=== PATIENT | male | born 1940 | race Caucasian/White ===

== ENCOUNTER → 2017-10-02 | Outpatient (CLI) | payer MEDICARE ==
[2017-10-02 12:49] LABS: CH 31.4; CHCM 34.9; HCT 43.4 % (39.0-53.0); HDW 2.66; HGB 14.8 gm/dL (13.0-17.5); MCH 30.8 pg (25.0-35.0); MCHC 34.1 g/dL (31.0-37.0); MCV 90.4 fL (80.0-100.0); Mean Platelet Volume 6.4; RDW 12.5 % (11.5-15.5); WBC 6.8 k/uL (3.8-10.6)
[2017-10-02 12:58] LABS: Anion Gap 10 mmol/L; Blood Urea Nitrogen 24 mg/dL (9-20); Carbon Dioxide 25 mmol/L (22-30); Chloride 106 mmol/L (98-107); Non-African American GFR(MDRD) >60 (>60 ml/min/1.73 sqM); Potassium 4.6 mmol/L (3.5-5.1); Sodium 141 mmol/L (137-145)
== END | disposition home or self-care (01) ==
LOC: LABPAT 12:23
PROVIDERS: ATTEND Internal Medicine Cardiovascular Disease
DX: Z01.812 Encounter for preprocedural laboratory examination (principal); I25.10 Atherosclerotic heart disease of native coronary artery without angina pectoris
CPT/HCPCS: 36415; 80051; 82565; 84520; 85027

== ENCOUNTER 2017-10-10 06:10 | Day surgery (SDC) | payer MEDICARE ==
[~2017-10-10 06:10] MED LIST: ALPRAZolam 0.25 MG TAB PO PRN; ASPIRIN 325 MG TAB PO ONE; SODIUM CHLORIDE 0.9% 1,000 ML in EMPTY BAG 1 BAG IV ONE
[2017-10-10 06:46] LABS: Glucose,Whole Blood 132 mg/dL (75-99)
[2017-10-10] MEDS ORDERED: diphenhydrAMINE 50 MG/ML 1 ML VIAL ONE ×2 (07:07→07:08)
[2017-10-10] MEDS ORDERED: MIDAZOLAM 2 MG/2 ML VIAL ONE (07:07)
[2017-10-10] MEDS ORDERED: HEPARIN SODIUM 1,000 UN/ML (10ML VL) ONE (07:07)
[2017-10-10] MEDS ORDERED: VERAPAMIL 2.5 MG/ML 2 ML AMP ONE (07:09)
[2017-10-10] MEDS ORDERED: MIDAZOLAM 2 MG/2 ML VIAL IV ONE (07:25)
[2017-10-10] MEDS ORDERED: LIDOCAINE 2% INJ 20 MG/ML SQ ONE (07:28)
[2017-10-10] MEDS ORDERED: VERAPAMIL SYRINGE (5 MG/10 ML) INTRAARTER ONE ×2 (07:30→08:51)
[2017-10-10] MEDS ORDERED: NITROGLYCERIN 1000MCG/10ML SYRINGE INTRACORON ONE ×3 (07:47→08:40)
[2017-10-10 07:48] LABS: Basophils % (A) 1 %; Eosinophils # (A) 0.2 k/uL (0-0.7); Eosinophils % (A) 3 %; HCT 39.7 % (39.0-53.0); HGB 13.5 gm/dL (13.0-17.5); Lymphocytes # (A) 1.4 k/uL (1.0-4.8); Lymphocytes % (A) 20 %; MCH 30.7 pg (25.0-35.0); MCV 90.3 fL (80.0-100.0); Mean Platelet Volume 6.5; Monocytes # (A) 0.3 k/uL (0-1.0); Monocytes % (A) 5 %; Neutrophils # (A) 4.7 k/uL (1.3-7.7); Neutrophils % (A) 70 %; Platelet Count 326 k/uL (150-450); RDW 12.5 % (11.5-15.5); WBC 6.7 k/uL (3.8-10.6)
[2017-10-10] MEDS ORDERED: BIVALIRUDIN BOLUS 250 MG/50 ML IV ONE (07:52)
[2017-10-10] MEDS ORDERED: BIVALIRUDIN 250 MG in SODIUM CHLORIDE 0.9% 50 ML IV ONE ×2 (07:53→08:35)
[2017-10-10 08:02] LABS: Blood Urea Nitrogen 20 mg/dL (9-20)
[2017-10-10] MEDS ORDERED: CLOPIDOGREL 75 MG TAB ONE (08:36)
[2017-10-10] MEDS ORDERED: CLOPIDOGREL 75 MG TAB PO ONE (08:47)
[2017-10-10] MEDS ORDERED: IOHEXOL 350 MG/ML (PER ML) 100ML BTL INJ ONE (08:47)
[2017-10-10] MEDS ORDERED: NITROGLYCERIN SL TABS 0.4 MG TAB SUBLINGUAL PRN ×2 (08:55→09:01)
[2017-10-10] MEDS ORDERED: RX INFO: IV CONTRAST WAS GIVEN 1 EACH MISC MISCELLANE PRN (08:55)
[2017-10-10] MEDS ORDERED: MAG HYDROX/AL HYDROX/SIMETH 30 ML CUP PO PRN (08:55)
[2017-10-10] MEDS ORDERED: ATROPINE SULFATE 0.1 MG/ML 10ML SYRINGE IV PRN (08:55)
[2017-10-10] MEDS ORDERED: ZOLPIDEM 5 MG TAB PO PRN (08:55)
[2017-10-10] MEDS ORDERED: ATORVASTATIN 80 MG TAB PO SCH (09:00)
[2017-10-10] MEDS ORDERED: CLOPIDOGREL 75 MG TAB PO SCH (09:01)
[2017-10-10] MEDS ORDERED: INFLUENZA VACCINE (6 MOS+) 60 MCG/0.5 ML SYRINGE IM ONE (11:04)
[2017-10-10] MEDS ORDERED: PNEUMOCOCCAL VACC-PNEUMOVAX 23 25 MCG/0.5 ML VIAL IM ONE (11:04)
[2017-10-10] MEDS: SODIUM CHLORIDE 0.9% 1,000 ML IV SCH ×2 (11:05→23:45)
[2017-10-10] MEDS: LABETALOL 200 MG TAB PO SCH ×2 (11:06→22:36)
[2017-10-10] MEDS: amLODIPine 5 MG TAB PO SCH (11:06)
[2017-10-10] MEDS: ASPIRIN 81 MG PO SCH (11:06)
[2017-10-10] MEDS: B COMPLEX-VIT C-VIT E-ZINC 1 EACH TAB PO SCH (11:07)
[2017-10-10] MEDS: CHOLECALCIFEROL 1,000 UNIT TAB PO SCH (11:07)
[2017-10-10 11:34] LABS: Glucose,Whole Blood 111 mg/dL (75-99)
[2017-10-10] MEDS ORDERED: MULTIVITAMINS, THERA 1 EACH TAB PO SCH (12:00)
[2017-10-10] MEDS ORDERED: LISINOPRIL 20 MG TAB PO SCH (13:30)
[2017-10-10 16:33] LABS: Glucose,Whole Blood 149 mg/dL (75-99)
--- NOTE | 2017-10-10 17:26 | CC ---
CARDIAC CATHETERIZATION REPORT DATE OF SERVICE: 10/10/2017. PROCEDURE: 1. PTCA and stenting of complex calcified tortuous left anterior descending coronary artery with 3 drug-eluting stents. 2. PTCA and stenting of proximal circumflex marginal with a drug-eluting stent. PERFORMED BY: Dr. Citlaly Jaquez. Moderate conscious sedation time was 80 minutes provided with a combination of Versed and Dilaudid. CLINICAL INFORMATION: Mr. Maury Pink is a 77-year-old gentleman with a history of hypertension, hypercholesterolemia, type 2 diabetes mellitus on oral agents, and also CAD with a positive stress test. I performed stenting of subtotal circumflex last week and brought him for the procedure electively to check the patency of circumflex and perform a staged intervention of the LAD. LAD was a very calcified, tortuous, diffusely diseased vessel. After the first diagonal and first septal branch, there was a long area of disease of about 70-80% and then there was a diagonal branch and after which there was a 99% subtotal stenosis located at a very tortuous area. The patient was advised intervention of this complex lesion from the right radial approach. The patient's right groin had a moderate area of ecchymosis because of some issue with placing a Perclose device during his last procedure and therefore I recommended be performed from right radial approach. The patient was already on aspirin and Plavix. PROCEDURE NOTE: Under local anesthesia and strict aseptic precautions a 6-Wolof introducer was placed in the right radial artery. Using a Glidewire and a XB LAD 3.5 guide in guide catheter of 6-Wolof caliber I manipulated gently and positioned it in the left coronary at the ostium. Decent guide support was achieved. Using a Whisper wire, I advanced the wire and crossed the lesion in the proximal portion of the LAD after the diagonal branch and the wire was advanced into the major diagonal branch. I had some difficulty making the turn after the diagonal where there was extreme tortuosity. I then advanced another whisper short wire with more angulation on the tip. With this I was able to cross the mid LAD's 99% subtotal lesion and wire was kept distally. A 2.25 caliber 12 mm NC trek balloon was used to pre-dilate the lesion. The distal lesion was addressed with the same balloon and the proximal area was also dilated. I then advanced an 8 mm long 2.25 caliber Xience drug-eluting stent and deployed this at the tightest lesion in the distal aspect at of extreme tortuosity. The patient did not have any symptoms or new EKG changes. I then deployed 2 consecutive stents of 12 mm length and 2.25 caliber and these were deployed proximal to the previous stent jailing the diagonal branch which did not have any independent lesion. Excellent angiographic result was achieved with very good flow in the diagonal branch. I then noted that the circumflex at the site of stenting was patent, but at the proximal end of the stented segment, there was a 70% narrowing and therefore I addressed this with a slightly larger stent at this time. I used a 12 mm 3.0 caliber Xience stent and deployed it in the circumflex using the same whisper wire to cross the lesion. This was performed without predilatation. Excellent angiographic result in the circumflex and LAD was achieved. Patient received Angiomax bolus and infusion as per protocol. He also received additional 150 mg of Plavix, although he was already on aspirin and Plavix combination. The sheath was carefully taken out of the radial artery and a TR band applied as per protocol. Good hemostasis was secured. Saturation of the fingers of the right hand was 97%. Excellent angiographic result without complication was achieved. Results were discussed with the patient's and other family members and the patient himself. I expect he will be discharged tomorrow if he remains stable. SUMI / AJN: [id number] /
--- NOTE | 2017-10-10 17:29 | LTR ---
October 10, [address] Prado: Thank you for the opportunity to participate in the care of Mr. Maury Pink. Please find enclosed my detailed cardiac catheterization report and PTCA report for your records. I am pleased to report to you that both LAD and circumflex were stented with drug-eluting stents with excellent results. I expect Mr. Pink to be discharged tomorrow if he remains stable. Thank you for your referral. Please call for questions. With kindest regards, Sincerely, Citlaly Jaquez. MMSABINOL / IJN: [id number] /
[2017-10-10] MEDS ORDERED: ACETAMINOPHEN TAB 325 MG TAB PO PRN (18:34)
[2017-10-10 21:28] LABS: Glucose,Whole Blood 104 mg/dL (75-99)
[2017-10-10 22:58] VITALS: BMI 37.3
[2017-10-11 06:34] LABS: Basophils % (A) 1 %; Eosinophils # (A) 0.2 k/uL (0-0.7); Eosinophils % (A) 4 %; HCT 40.6 % (39.0-53.0); HGB 12.9 gm/dL (13.0-17.5); Lymphocytes # (A) 1.5 k/uL (1.0-4.8); Lymphocytes % (A) 24 %; MCH 29.8 pg (25.0-35.0); MCHC 31.7 g/dL (31.0-37.0); MCV 93.8 fL (80.0-100.0); Mean Platelet Volume 6.8; Monocytes # (A) 0.3 k/uL (0-1.0); Monocytes % (A) 5 %; Neutrophils % (A) 65 %; Platelet Count 269 k/uL (150-450); RBC 4.33 m/uL (4.30-5.90); WBC 6.1 k/uL (3.8-10.6)
[2017-10-11 06:43] LABS: Anion Gap 9 mmol/L; Blood Urea Nitrogen 15 mg/dL (9-20); Calcium 10.1 mg/dL (8.4-10.2); Carbon Dioxide 24 mmol/L (22-30); Chloride 107 mmol/L (98-107); Glucose 128 mg/dL (74-99); Potassium 4.1 mmol/L (3.5-5.1); Sodium 140 mmol/L (137-145)
[2017-10-11 06:44] LABS: Glucose,Whole Blood 126 mg/dL (75-99)
[2017-10-11] MEDS ORDERED: PRAVASTATIN SODIUM 80 MG TAB PO STA (07:24)
[2017-10-11] MEDS ORDERED: ASPIRIN 81 MG PO SCH (09:00)
[2017-10-11] MEDS ORDERED: CLOPIDOGREL 75 MG TAB PO SCH (09:00)
[2017-10-11] MEDS: ASPIRIN 81 MG PO SCH (09:10)
[2017-10-11] MEDS: LABETALOL 200 MG TAB PO SCH (09:10)
[2017-10-11] MEDS: CHOLECALCIFEROL 1,000 UNIT TAB PO SCH (09:10)
[2017-10-11] MEDS: amLODIPine 5 MG TAB PO SCH (09:10)
[2017-10-11] MEDS: B COMPLEX-VIT C-VIT E-ZINC 1 EACH TAB PO SCH (09:11)
--- NOTE | 2017-10-11 09:51 | DS ---
DISCHARGE SUMMARY DATE OF ADMISSION: 10/10/2017 DATE OF DISCHARGE: 10/11/2017 DIAGNOSES: 1. Unstable angina. 2. Hypertension. 3. Hypercholesterolemia. 4. Type 2 diabetes mellitus. PROCEDURES PERFORMED: PTCA and stenting of a long calcified lesion in LAD and PTCA and stenting of proximal obtuse marginal branch of circumflex. Please refer to the detailed PTCA report for the details of the procedures. Mr. Pink was brought in electively to perform a radial approach, PCI of LAD and to check patency of circumflex that was stented a week ago. LAD was stented uneventfully. Multiple long drug-eluting stents were used. Excellent angiographic result was achieved. I then noticed that the circumflex proximal to the stented segment had an area of haziness and a 70% stenosis and this was addressed with another larger 3.0 caliber 12 mm drug-eluting stent with excellent angiographic result. Postprocedure course was uneventful. This morning he is asymptomatic. Blood pressure is 126/66. The right radial site is clean and dry with a good pulse. Vital signs are stable. There is no JVD or carotid bruit. S1, S2 heard normally. Short systolic murmur noted. Lungs are clear. Abdomen and lower extremity exam unchanged. EKG revealed a sinus mechanism with an incomplete right bundle, unchanged from before. Laboratory data including the hemoglobin and renal function was normal. The patient has been ambulating without symptoms. He will be discharged today after he is up and about. He will see Dr. Matias Malave in the next 7 to 10 days. Discharge instructions regarding activity, diet and medications were given. MMODL / IJN: [id number] /
[2017-10-11 16:27] VITALS: BP 133/68; PULSE 73; TEMP 97.9
[2017-10-11 16:32] VITALS: RESP 16
== END 2017-10-11 10:54 | disposition home or self-care (01) ==
LOC: CATHCVL 06:10 → 6SEL 08:47 → CATHCVL 10-11 10:54
PROVIDERS: ATTEND Internal Medicine Interventional Cardiology
DX: I25.110 Atherosclerotic heart disease of native coronary artery with unstable angina pectoris (principal); I25.84 Coronary atherosclerosis due to calcified coronary lesion; Z23 Encounter for immunization; I45.10 Unspecified right bundle-branch block; Z95.5 Presence of coronary angioplasty implant and graft; R94.39 Abnormal result of other cardiovascular function study; I10 Essential (primary) hypertension; E78.00 Pure hypercholesterolemia, unspecified; E11.9 Type 2 diabetes mellitus without complications; Z82.49 Family history of ischemic heart disease and other diseases of the circulatory system; Z79.899 Other long term (current) drug therapy; Z87.891 Personal history of nicotine dependence
CPT/HCPCS: 80048; 82565; 84520; 85025 ×2; 90732; 90686; C9600 ×2; C1769 ×4; C1887; C1725; C1874; C1894; G0008; G0009; J2001; J2250; Q9967; J0583

== ENCOUNTER → 2019-12-03 | Outpatient (CLI) | payer MEDICARE ==
--- NOTE | 2019-12-03 23:14 | MR ---
EXAMINATION TYPE: MR hip LT wo con DATE OF EXAM: 12/03/2019 COMPARISON: None. HISTORY: Left hip pain Standard multiplanar, multisequence MRI departmental protocol Multiplanar, multisequence images of the pelvis focusing on the left hip were acquired. FINDINGS: Asymmetric severe superior joint space loss left hip with more mild to moderate joint space loss right hip. There is serpiginous low T1 signal through the superior femoral head which has lost spherical shape coronal image 8. Extensive subchondral cystic change along the superior aspect of the femoral head with diffuse T2 hyperintensity or edema extending into the femoral neck is noted. There is additional subchondral cystic change and edema through the superior aspect of the acetabulum. Sma ll to moderate sized hip joint effusions are present bilaterally. Right femoral head and hip shows no suspicious edema. No suspicious inguinal hernia or adenopathy bilaterally. Muscle bulk bilateral thi gh symmetric and is thought within normal limits. Bladder shows moderate areas of trabeculation and scattered small diverticula along the margin. Prost ate gland is overall heterogeneous appearance and enlarged in size. T2 hypointense areas suspicious f or nodule just left of midline in the apex axial image 10 series 601 is present. Correlate clinically . Consider urology referral. Incidental 2.7 x 0.9 cm well-defined lesion of T2 hyperintensity and T1 hypointensity right gluteal region along skin surface suspicious for sebaceous cyst axial image 10. D iverticulum visualized portion of the mid to distal sigmoid colon. No pelvic ascites or adenopathy no alejandra. IMPRESSION: 1. 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 No free nick ny fragmentation identified currently. 2. Enlarged prostate gland consistent with BPH. Outlet obstruction related to BPH thought present. Carvalho spicious area left peripheral apex medially noted. Correlate clinically. Consider a urology referral.
== END | disposition home or self-care (01) ==
LOC: RADMRIMAIN 13:00
PROVIDERS: ATTEND Family Medicine
DX: M16.12 Unilateral primary osteoarthritis, left hip (principal); M87.852 Other osteonecrosis, left femur; N40.0 Benign prostatic hyperplasia without lower urinary tract symptoms

== ENCOUNTER → 2020-04-14 | Outpatient (CLI) | payer MEDICARE ==
[2020-04-15 14:10] LABS: Albumin 3.71 g/dL (3.80-4.90); Gamma Globulin 0.62 g/dL (0.70-1.50)
== END | disposition home or self-care (01) ==
LOC: LABWHC1 08:53
PROVIDERS: ATTEND Psychiatry & Neurology Neurology
DX: G62.9 Polyneuropathy, unspecified (principal); R41.3 Other amnesia
CPT/HCPCS: 36415; 82607; 82747; 84165; 84439; 84443; 85652; 86038; 86618

== ENCOUNTER → 2020-06-02 | Outpatient (CLI) | payer MEDICARE ==
[2020-06-02 10:45] LABS: HCT 42.1 % (39.0-53.0); HGB 13.7 gm/dL (13.0-17.5); MCH 29.7 pg (25.0-35.0); MCHC 32.6 g/dL (31.0-37.0); MCV 91.1 fL (80.0-100.0); Mean Platelet Volume 6.8; Platelet Count 288 k/uL (150-450); RBC 4.63 m/uL (4.30-5.90); RDW 12.8 % (11.5-15.5); WBC 8.3 k/uL (3.8-10.6)
[2020-06-02 10:54] LABS: Albumin 4.2 g/dL (3.5-5.0); Calcium 10.8 mg/dL (8.4-10.2); Total Bilirubin 0.6 mg/dL (0.2-1.3); Total Protein 6.6 g/dL (6.3-8.2)
[2020-06-02 10:57] LABS: INR 1.1 (<1.2); Partial Thromboplastin Time 26.5 sec (22.0-30.0); Prothrombin Time 11.5 sec (9.0-12.0)
[2020-06-02 11:01] LABS: Appearance,Urine Clear (Clear); Bilirubin,Urine Negative (Negative); Blood,Urine Negative (Negative); Color,Urine Light Yellow; Glucose,Urine (UA) Negative (Negative); Ketones,Urine Negative (Negative); Leukocyte Esterase,Urine Negative (Negative); Nitrite,Urine Negative (Negative); PH, Urine 5.5 (5.0-8.0); Protein,Urine Negative (Negative); Specific Gravity,Urine 1.011 (1.001-1.035); Urobilinogen,Urine <2.0 mg/dL (<2.0)
== END | disposition home or self-care (01) ==
LOC: LABWHC1 09:48
PROVIDERS: ATTEND Orthopaedic Surgery
DX: Z01.812 Encounter for preprocedural laboratory examination (principal); Z79.01 Long term (current) use of anticoagulants
CPT/HCPCS: 36415; 80053; 81003; 85027; 85610; 85730; 87070

== ENCOUNTER 2020-06-22 07:54 | Day surgery (SDC) | payer MEDICARE ==
[2020-06-16 15:13] VITALS: BMI 32.5
[~2020-06-22 07:54] MED LIST changes: +ACETAMINOPHEN TAB 500 MG TAB PO ONE; -ALPRAZolam 0.25 MG TAB PO PRN; -ASPIRIN 325 MG TAB PO ONE; +DEXAMETHASONE SOD PHOSPHATE 10 MG/ML 1 ML VIAL IV ONE; +GABAPENTIN 300 MG CAP PO ONE; +HYDROmorphone 0.5 MG/0.5 ML SYRINGE IVP PRN; +MELOXICAM 7.5 MG TAB PO ONE; +MIDAZOLAM 2 MG/2 ML VIAL IV PRN; +ONDANSETRON 4 MG/2 ML VIAL IVP ONE; +ROPIVACAINE 246.25 MG, EPINEPHrine 0.5 MG, KETOROLAC 30 MG, cloNIDine HCL/PF 80 MCG, WA... MISCELLANE ONE; -SODIUM CHLORIDE 0.9% 1,000 ML in EMPTY BAG 1 BAG IV ONE; +TRANEXAMIC ACID 1,000 MG in SODIUM CHLORIDE 0.9% 100 ML IVPB ONE
[2020-06-22] MEDS: LACTATED RINGERS 1,000 ML IV SCH (08:26)
[2020-06-22 08:31] LABS: Glucose,Whole Blood 121 mg/dL (75-99)
[2020-06-22] MEDS ORDERED: fentaNYL (PF) 50 MCG/ML 2 ML AMP ONE (08:54)
[2020-06-22] MEDS ORDERED: SODIUM CHLORIDE 0.9% 100 ML BAG ONE (08:54)
[2020-06-22] MEDS ORDERED: GLYCOPYRROLATE 0.2 MG/ML 2 ML VIAL ONE (08:54)
[2020-06-22] MEDS ORDERED: PHENYLEPHRINE-0.9% NACL SYG 1 MG/10 ML SYRINGE ONE (08:54)
[2020-06-22] MEDS ORDERED: TRANEXAMIC ACID 1,000 MG/10 ML VIAL ONE (08:54)
[2020-06-22] MEDS ORDERED: SODIUM CHLORIDE 0.9% IRRIG 1,000 ML BTL IRRIGATION ONE (08:54)
[2020-06-22] MEDS ORDERED: MIDAZOLAM 2 MG/2 ML VIAL ONE (08:54)
[2020-06-22] MEDS ORDERED: ePHEDrine SULFATE/0.9% NACL/PF 50 MG/5 ML SYRINGE IV ONE (08:54)
[2020-06-22] MEDS ORDERED: HEPARIN SODIUM,PORCINE 10,000 UNIT/ML 1 ML VIAL ONE (08:54)
[2020-06-22] MEDS ORDERED: ceFAZolin 3,000 MG in SODIUM CHLORIDE 0.9% IRRIGATIO 3,000 ML IRRIGATION ONE (08:57)
[2020-06-22] MEDS ORDERED: HYDROcodone/APAP 5-325MG 1 EACH TAB PO PRN ×2 (09:04)
[2020-06-22] MEDS ORDERED: MAGNESIUM HYDROXIDE 2,400 MG/10 ML CUP PO PRN (09:04)
[2020-06-22] MEDS ORDERED: HYDROmorphone 0.5 MG/0.5 ML SYRINGE IVP PRN ×3 (09:04)
[2020-06-22] MEDS ORDERED: ONDANSETRON 4 MG/2 ML VIAL IVP PRN (09:04)
[2020-06-22] MEDS ORDERED: NALOXONE 0.4 MG/ML 1 ML VIAL IV PRN (09:04)
[2020-06-22] MEDS ORDERED: LACTATED RINGERS 1,000 ML IV ONE (09:47)
--- NOTE | 2020-06-22 10:25 | P.OP ---
Date of Procedure: 06/22/20 Preoperative Diagnosis: Severe osteoarthritis left hip Postoperative Diagnosis: Severe osteoarthritis left hip Procedure(s) Performed: Left total hip arthroplasty with a direct anterior approach Implants: Corbett and nephew Polarstem size 7 standard Corbett [employer] Nephew R3, 3 hole acetabular shell, 52 mm Corbett [employer] Nephew reflection 6.5 mm cancellus screw, 20 mm 2 [employer]ett [employer] Nephew R3, XLPE 20 acetabular liner Corbett [employer] Nephew Oxinium femoral head 36 m, +4 All components were press-fit. The articulation is Oxinium on polyethylene. Anesthesia: spinal Surgeon: Mayco Lee Structural Designer #1: Kalina Rincon Estimated Blood Loss (ml): 300 (130 mL returned with Cell Saver) Pathology: other (Femoral head) Condition: stable Disposition: PACU Indications for Procedure: After failure of conservative treatment we discussed the surgical and nonsurgical treatment options at length. Patient wishes to proceed with a total hip arthroplasty with a direct anterior approach. Complications specific to this procedure were discussed at length, including but not limited to infection, leg length discrepancy, dislocation, and nerve injury. Covid-19 was also discussed at length with the patient, and they are aware of the current policies and procedures. The patient was given the option of delaying surgery, but they elect to proceed knowing these risks. Patient is aware of all these complications and informed consent was obtained Operative Findings: The operative findings are consistent with severe osteoarthritis of the left hip Description of Procedure: Patient was seen and evaluated in the preoperative area, consent was reviewed, and the surgical site was marked with a skin marker. Patient was then brought to the operating room and given prophylactic antibiotics intravenously. 1 g of Tranexamic acid was also given. A spinal anesthetic was administered by the anesthesia department. The patient was then placed on the Fairdealing table with the bony prominences well-padded. The hip area was then prepped and draped in usual sterile fashion. A universal timeout was then performed, which confirmed the patient's name, surgical site, ALLERGIES, and procedure being performed. Next the incision site was located at 1 cm distal and 1 cm lateral to the anterior superior iliac spine. The skin and subcutaneous tissues were sharply incised. Incision was carefully dissected down to the fascia overlying the tensor fascia lissy muscle. This fascia was then incised in line with the incision. Next, using blunt finger dissection, the tensor fascia lissy muscle was dissected off its investing fascia. The muscle was then carefully retracted laterally with a cobra retractor over the lateral neck of the femur. Next, the circumflex vessels were identified and cauterized using the AquaMantis device. The anterior hip capsule was then exposed. The capsule was then opened and an inverted T fashion. Cobra retractors were then placed intracapsularly. The proximal femur was then visualized. The femoral neck was then osteotomized appropriate level above the lesser trochanter. Small amount of traction was placed with the Fairdealing table. A small wedge of bone was then removed from the remaining femoral head. Next, using a corkscrew femoral head was easily removed from the acetabulum. On gross visual inspection, the femoral head had complete loss of articular cartilage in multiple periarticular osteophytes. Attention was then turned to the acetabulum. the acetabulum was exposed and any remaining labrum was excised. Sequential reaming of the acetabulum was performed using fluoroscopic guidance. When the appropriate size was reached, a trial was then placed. The position and fit of the trial was checked with fluoroscopy. The trial was then removed. Then, using fluoroscopic guidance, the final implant was impacted at 20 of anteversion and 40 of abduction, and fully seated in the acetabulum. 2 screws were then placed in the acetabulum. Again fluoroscopy was used to check position of the screws. Next, the liner was then impacted, with a 20 elevated liner located in the anterior superior quadrant. Component locking was confirmed. Attention was then directed to the femur. With the aid of the Fairdealing table, the femur was externally rotated to approximately 130, extended, and abducted under the opposite leg. A side hook was then placed under the proximal femur, and the side hook elevator was used to elevate the proximal femur. Retractors were then placed. A capsular release was performed, as well as a release of the conjoined tendon, which afforded excellent visualization of the proximal femur. Next, a box osteotome was used to lateralize the proximal femur. A lath hand was then used to locate the femoral canal. Sequential broaching was then performed with appropriate size which afforded excellent fixation in the proximal femur. A trial was then placed with appropriate head and neck, and the hip was gently reduced with the aid of the Fairdealing table. Fluoroscopy was then used to check position of the components, as well as to ensure equal leg lengths. The hip was then gently dislocated and the trials were then removed. Final implants were then impacted and the hip was again reduced. Final fluoroscopic x-rays confirmed that the components were in anatomic position, as well as equal leg lengths. The hip was also taken through range of motion, and found to be stable. The hip was then copiously irrigated with antibiotic solution with pulsatile lavage. The hip was then irrigated with Irrisept solution. The soft tissues were then injected with a ropivacaine solution, which consisted of 246.25 mg of ropivacaine, 0.5 mg of epinephrine, 30 mg of Toradol, 80 g of clonidine, and 48.45 mL of sterile water, for a total of 100 mL of fluid injected. A second dose of 1 g of Tranexamic acid was also given. the fascia was then closed with 2-0 strata fix suture. The subcutaneous tissue was closed with 3-0 Vicryl. The subcuticular tissue was closed with 3-0 strata fix suture. The skin was then closed with Dermabond glue and a sterile silver dressing. The patient was then transferred to the recovery room in stable condition. The assistant teaching professor RAZIA Medina was required due to the complexity of surgery, and the need for skilled surgical specialist for positioning, draping, exposure, retraction, and closure of the wound.
[2020-06-22] MEDS ORDERED: ONDANSETRON 4 MG/2 ML VIAL IVP ONE (10:40)
--- NOTE | 2020-06-22 11:51 | FL ---
Fluoroscopy HISTORY: Anterior hip replacement 69 seconds fluoroscopy time supplied to the referring clinician. 2 intraoperative C-arm images docum ent the procedure. See dictated report from orthopedic surgery.
--- NOTE | 2020-06-22 12:01 | XR ---
EXAMINATION TYPE: XR Hip Limited LT DATE OF EXAM: 06/22/2020 CLINICAL HISTORY: Post hip surgery. Postop anterior left hip. TECHNIQUE: Frontal portable view of the left hip obtained. COMPARISON: Intraoperative fluoroscopy 06/22/2020 FINDINGS: Left hip total arthroplasty with normal anatomic alignment on frontal view. Subcutaneous e mphysema. No unexpected radiopaque foreign body. IMPRESSION: Good alignment of total left hip arthroplasty.
--- NOTE | 2020-06-22 12:45 | XR ---
Limited left hip HISTORY: Post anterior hip replacement 2 intraoperative images document the procedure.
[2020-06-22] MEDS: SODIUM CHLORIDE 0.9% 1,000 ML IV SCH ×2 (13:58→23:31)
[2020-06-22] MEDS ORDERED: NITROGLYCERIN SL TABS 0.4 MG TAB SUBLINGUAL PRN (17:05)
--- NOTE | 2020-06-22 18:09 | P.CONS ---
History of Present Illness - Reason for Consult Consult date: 06/22/20 HTN, CAD Requesting physician: Mayco Lee - Chief Complaint hip pain - History of Present Illness Patient is a 1-year-old male past medical history of coronary artery disease status post 5 coronary artery stent, diabetes mellitus, hypertension, and dyslipidemia who presented for elective left total hip arthroplasty. Patient underwent procedure without any immediate postoperative complications. He has been up and ambulating his room already. Patient seen and examined at bedside. He denies any chest pain, shortness of breath, lightheadedness, or dizziness. He had one episode of nausea postoperatively but it is much improved at this time. He states his pain is currently well controlled. He has no other complaints currently. Review of Systems Pertinent positives and negatives as discussed in HPI, a complete review of systems was performed and all other systems are negative. Past Medical History Past Medical History: Coronary Artery Disease (CAD), Chest Pain / Angina, Diabetes Mellitus, GERD/Reflux, Hyperlipidemia, Hypertension, Prostate Disorder, Sleep Apnea/CPAP/BIPAP Additional Past Medical History / Comment(s): hx varicose veins, constipation, enlarged prostate(thermal reduction), cyst rt kidney, growth in left kidney History of Any Multi-Drug Resistant Organisms: None Reported Past Surgical History: Heart Catheterization With Stent Additional Past Surgical History / Comment(s): bilat cataracts removed, varicose veins removal, mult surgeries to remove large birthmark from buttocks, 5 cardiac stents Past Anesthesia/Blood Transfusion Reactions: Previous Problems w/ Anesthesia, Motion Sickness, Postoperative Nausea & Vomiting (PONV) Additional Past Anesthesia/Blood Transfusion Reaction / Comm: passed out with a local anesthesia, hemorrhage from groin after heart cath Date of Last Stent Placement:: 10/2017 Past Psychological History: Depression Additional Psychological History / Comment(s): mom loss of memory Smoking Status: Never smoker Past Alcohol Use History: Rare Additional Past Alcohol Use History / Comment(s): QUIT SMOKING AT AGE 23, pipe until age 44 Past Drug Use History: None Reported - Past Family History Mother Family Medical History: Cancer Additional Family Medical History / Comment(s): breast Medications and Allergies Home Medications Medication Instructions Recorded Confirmed Type Aspirin [Adult Low Dose Aspirin EC] 81 mg PO DAILY 09/27/17 06/16/20 History lisinopriL [Zestril] 20 mg PO BID 09/27/17 06/22/20 History Clopidogrel Bisulfate [Plavix] 75 mg PO DAILY #30 tab 10/05/17 06/22/20 Rx metFORMIN HCL [Glucophage Xr] 500 mg PO DAILY #0 10/05/17 06/16/20 Rx Acetaminophen [Tylenol Extra 500 mg PO Q8HR 06/16/20 06/16/20 History Strength] Donepezil HCl [Aricept] 5 mg PO DAILY 06/16/20 06/16/20 History Labetalol HCl 200 mg PO 799,199906/16/20 06/22/20 History Multivitamins, Thera [Multivitamin 1 tab PO DAILY 06/16/20 06/16/20 History (formulary)] Nitroglycerin Sl Tabs [Nitrostat] 0.4 mg SUBLINGUAL Q5M PRN 06/16/20 06/16/20 History traMADol HCl [Ultram] 50 mg PO Q8HR 06/16/20 06/16/20 History Allergies Allergy/AdvReac Type Severity Reaction Status Date / Time amlodipine Allergy Unknown Verified 06/22/20 08:42 lidocaine [From Xylocaine] Allergy passed out Verified 06/22/20 08:42 Neiguui-Mes-Zgb Reductase Allergy Rash/Hives Verified 06/22/20 08:42 Inhibitor atorvastatin [From Lipitor] AdvReac Rash/Hives Verified 06/22/20 08:42 influenza virus vaccine, AdvReac Unknown Verified 06/22/20 08:42 specific pneumococcal vaccine AdvReac Unknown Verified 06/22/20 08:42 Physical Exam Osteopathic Statement: *. No significant issues noted on an osteopathic structural exam other than those noted in the History and Physical/Consult. Vitals: Vital Signs Temp Pulse Resp BP BP Pulse Ox 06/22/20 14:44 97.7 F 66 18 159/79 96 06/22/20 13:00 72 16 169/76 99 06/22/20 12:20 51 L 16 154/65 100 06/22/20 11:55 52 L 16 119/67 99 06/22/20 11:30 61 16 119/60 100 06/22/20 11:15 51 L 16 119/69 97 06/22/20 11:00 55 L 16 123/58 95 06/22/20 10:45 59 L 16 136/74 92 L 09/15/20 10:35 97.8 F 70 16 154/86 96 06/22/20 08:23 98.1 F 68 16 186/86 96 Intake and Output 06/22/20 06/22/20 06/22/20 06:59 14:59 22:59 Intake Total 1251 Output Total 300 Balance 951 Intake: IV 1251 Output: Estimated Blood Loss 300 Other: Weight 110.3 kg General: non toxic, no distress, appears at stated age Derm: warm, dry Head: atraumatic, normocephalic, symmetric Eyes: EOMI, no lid lag, anicteric sclera ENT: Nose and ears atraumatic, no thrush, no pharyngeal erythema Neck: No thyromegaly, no cervical lymphadenopathy, trachea midline, supple Mouth: no lip lesion, mucus membranes moist Cardiovascular: S1S2 reg, no murmur, positive posterior tibial pulse bilateral, no edema, capillary refill less than 2 seconds Lungs: clear to ascultation bilateral, no ronchi, no rales, no wheeze, no accessory muscle use Abdominal: soft, nontender to palpation, no guarding, no appreciable organomegaly, normal bowel sounds Ext: no gross muscle atrophy, muscle strength muscle strength 5 out of 5 in upper extremities, no contractures Neuro: CN II-XI grossly intact, light touch intact all 4 extremities Psych: Alert, oriented, appropriate affect Results Labs: Abnormal Lab Results - Last 24 Hours (Table) 06/22/20 Range/Units 08:25 POC Glucose (mg/dL) 121 H (75-99) mg/dL Assessment and Plan Assessment: Patient is an 80 yo here for elective left JACIEL. HTN, accelerated - resume labetalol, lisinopril, follow BP DM 2 - resume metformin - SSI - A1C 6.1 1 year ago CAD s/p stents - resume plavix when okay with ortho - ASA, allergic to statins Obesity - structured outpatient weight loss Chronic: GERD HLD NEYMAR- CPAP Thank you for allowing us to participate in the care of this pleasant patient. Do not hesitate to contact us with questions. Someone can be reached from the [facility] hospitalist group all hours of the day at [phone] or via perfect serve.
[2020-06-22] MEDS: ASPIRIN 325 MG TAB PO SCH (20:01)
[2020-06-22] MEDS: LABETALOL 200 MG TAB PO SCH (20:02)
[2020-06-22] MEDS: lisinopriL 20 MG TAB PO SCH (20:03)
[2020-06-22 20:51] LABS: Glucose,Whole Blood 224 mg/dL (75-99)
[2020-06-22] MEDS ORDERED: SENNOSIDES-DOCUSATE SODIUM 1 EACH TAB PO SCH (21:00)
[2020-06-23] MEDS ORDERED: traMADol 50 MG TAB PO SCH
[2020-06-23] MEDS: ACETAMINOPHEN TAB 500 MG TAB PO SCH ×2 (00:18→07:18)
[2020-06-23] MEDS: LACTATED RINGERS 1,000 ML IV SCH (04:13)
[2020-06-23 06:18] LABS: Basophils % (A) 0 %; Eosinophils % (A) 0 %; HCT 35.6 % (39.0-53.0); HGB 11.8 gm/dL (13.0-17.5); Lymphocytes # (A) 1.6 k/uL (1.0-4.8); Lymphocytes % (A) 15 %; MCH 29.6 pg (25.0-35.0); MCHC 33.3 g/dL (31.0-37.0); MCV 89.1 fL (80.0-100.0); Mean Platelet Volume 6.4; Monocytes # (A) 0.9 k/uL (0-1.0); Monocytes % (A) 8 %; Neutrophils # (A) 8.5 k/uL (1.3-7.7); Neutrophils % (A) 76 %; Platelet Count 274 k/uL (150-450); RBC 3.99 m/uL (4.30-5.90); RDW 12.5 % (11.5-15.5); WBC 11.2 k/uL (3.8-10.6)
[2020-06-23 06:54] LABS: Glucose,Whole Blood 136 mg/dL (75-99)
[2020-06-23] MEDS: LABETALOL 200 MG TAB PO SCH (07:19)
[2020-06-23] MEDS ORDERED: INSULIN ASPART (NovoLOG) 100 UNIT/ML VIAL SQ SCH (07:30)
[2020-06-23 07:50] VITALS: BP 173/84; PULSE 71; RESP 18; TEMP 97.9
--- NOTE | 2020-06-23 08:28 | P.DS ---
Providers Expected date of discharge: 06/23/20 Attending physician: Mayco Lee Consults: 06/22/20 09:04 Consult Physician Routine Consulting Provider: Amy Donahue Consult Reason/Comments: medical management and anticoagulation Do you want consulting provider notified?: Yes Primary care physician: Tamar Jacob - Discharge Diagnosis(es) (1) Osteoarthritis of left hip Current Visit: Yes Status: Acute (2) Status post total hip replacement, left Current Visit: Yes Status: Acute Hospital Course: This is a 80-year-old male with known history of degenerative arthritis of the left hip. The patient presents for evaluation. After discussion and con sideration patient elects to proceed with total hip arthroplasty. The patient is seen preoperatively by Dr. Lee and medically cleared for surgery by their primary care physician. Patient is admitted to [facility] on 06/22/2020 for total hip arthroplasty. The procedures performed without complication or sequelae. The patient is doing well postoperatively. Labs and vital signs are stable on day of discharge. On day of discharge patient's hip incision is healing well. There is minimal erythema. There is no drainage noted at this time. There is minimal soft tissue swelling to the hip and thigh. Patient has full foot and ankle motion without difficulty or pain. Calf is soft and nontender to palpation. Neurovascular status to the left lower extremity is intact. Patient is discharged home in good condition. Opioid start talking form is reviewed and signed at patient bedside. Please see med rec for accurate list of home medications. Plan - Discharge Summary Discharge Rx Participant: No New Discharge Prescriptions: New Aspirin 325 mg PO BID #60 tab HYDROcodone/APAP 5-325MG [[place] 5-325] 1 tab PO Q6HR PRN #30 tab PRN Reason: Pain Sennosides [Senokot] 2 tab PO DAILY PRN #60 tablet PRN Reason: Constipation No Action lisinopriL [Zestril] 20 mg PO BID Aspirin [Adult Low Dose Aspirin EC] 81 mg PO DAILY Clopidogrel Bisulfate [Plavix] 75 mg PO DAILY #30 tab metFORMIN HCL [Glucophage Xr] 500 mg PO DAILY #0 Acetaminophen [Tylenol Extra Strength] 500 mg PO Q8HR Donepezil HCl [Aricept] 5 mg PO DAILY traMADol HCl [Ultram] 50 mg PO Q8HR Labetalol HCl 200 mg PO 0800,1999 Multivitamins, Thera [Multivitamin (formulary)] 1 tab PO DAILY Nitroglycerin Sl Tabs [Nitrostat] 0.4 mg SUBLINGUAL Q5M PRN PRN Reason: Chest Pain Discharge Medication List Aspirin [Adult Low Dose Aspirin EC] 81 mg PO DAILY 09/27/17 [History] lisinopriL [Zestril] 20 mg PO BID 09/27/17 [History] Clopidogrel Bisulfate [Plavix] 75 mg PO DAILY #30 tab 10/05/17 [Rx] metFORMIN HCL [Glucophage Xr] 500 mg PO DAILY #0 10/05/17 [Rx] Acetaminophen [Tylenol Extra Strength] 500 mg PO Q8HR 06/16/20 [History] Donepezil HCl [Aricept] 5 mg PO DAILY 06/16/20 [History] Labetalol HCl 200 mg PO 799,199906/16/20 [History] Multivitamins, Thera [Multivitamin (formulary)] 1 tab PO DAILY 06/16/20 [History] Nitroglycerin Sl Tabs [Nitrostat] 0.4 mg SUBLINGUAL Q5M PRN 06/16/20 [History] traMADol HCl [Ultram] 50 mg PO Q8HR 06/16/20 [History] Aspirin 325 mg PO BID #60 tab 06/23/20 [Rx] HYDROcodone/APAP 5-325MG [[place] 5-325] 1 tab PO Q6HR PRN #30 tab 06/23/20 [Rx] Sennosides [Senokot] 2 tab PO DAILY PRN #60 tablet 06/23/20 [Rx] Follow up Appointment(s)/Referral(s): Mayco Lee DO [Doctor of Osteopathic Medicine] - 2 Weeks Activity/Diet/Wound Care/Special Instructions: Weightbearing as tolerated with walker. Leave dressing intact. Dressing may be removed by home care nurse or by patient in 10 days. May shower with dressing on. Please take aspirin 325mg twice daily for 30 days to prevent blood clots. Recommend use of compression stockings daily until follow up to help prevent swelling and blood clots. May remove at night before sleeping. Please follow-up with [facility] in 2 weeks and call with any questions or concerns, . Discharge Disposition: HOME WITH HOME HEALTH SERVICES
[2020-06-23] MEDS ORDERED: DONEPEZIL 5 MG TAB PO SCH (09:00)
[2020-06-23] MEDS ORDERED: NON FORMULARY DRUG (Aspirin [Adult Low Dose Aspirin Ec] 81 MG Tablet.Dr) PO SCH (09:00)
[2020-06-23] MEDS ORDERED: metFORMIN 500 MG TAB PO SCH (09:00)
[2020-06-23] MEDS ORDERED: MELOXICAM 7.5 MG TAB PO SCH (09:00)
[2020-06-23] MEDS ORDERED: MULTIVITAMINS, THERA 1 EACH TAB PO SCH (09:00)
[2020-06-23] MEDS: lisinopriL 20 MG TAB PO SCH (09:19)
[2020-06-23] MEDS: ASPIRIN 325 MG TAB PO SCH (09:19)
--- NOTE | 2020-06-23 10:13 | P.PN ---
Subjective Progress Note Date: 06/23/20 Principal diagnosis: hip pain Patient is an 80-year-old male past medical history of coronary artery disease status post 5 coronary artery stent, diabetes mellitus, hypertension, and dyslipidemia who presented for elective left total hip arthroplasty. Patient underwent procedure without any immediate postoperative complications. He has been up and ambulating his room already and has worked with physical therapy. Patient seen and examined at bedside. He denies any chest pain, shortness of breath, nausea or vomiting at this time. Had one episode of nausea last evening. Pain is well-controlled states he did well with physical therapy. Excited to go home. General: non toxic, no distress, appears at stated age Derm: warm, dry Head: atraumatic, normocephalic, symmetric Eyes: EOMI, no lid lag, anicteric sclera Mouth: no lip lesion, mucus membranes moist Cardiovascular: S1S2 reg, no murmur, positive posterior tibial pulse bilateral, Lungs: Decreased bs bilateral, no rhonchi, no rales , no accessory muscle use Abdominal: soft, nontender to palpation, no guarding, no appreciable organomegaly Ext: no gross muscle atrophy, no edema, no contractures Neuro: CN II-XI grossly intact, no focal neuro deficits Psych: Alert, oriented, appropriate affect Objective - Vital Signs Vital signs: Vital Signs Temp 97.9 F 06/23/20 07:15 Pulse 71 06/23/20 07:15 Resp 18 06/23/20 07:15 BP 173/84 06/23/20 07:15 Pulse Ox 97 06/23/20 07:15 Intake & Output 06/22/20 06/23/20 06/23/20 18:59 06:59 18:59 Intake Total 1251 236 Output Total 300 Balance 951 236 Weight 110.3 kg Intake: IV 1251 Oral 236 Output: Estimated Blood Loss 300 Other: Voiding Method Toilet Toilet # Voids 1 2 2 - Labs CBC & Chem 7: 06/23/20 05:48 Labs: Abnormal Lab Results - Last 24 Hours (Table) 06/22/20 06/23/20 06/23/20 Range/Units 20:49 05:48 06:52 WBC 11.2 H (3.8-10.6) k/uL RBC 3.99 L (4.30-5.90) m/uL Hgb 11.8 L (13.0-17.5) gm/dL Hct 35.6 L (39.0-53.0) % Neutrophils # 8.5 H (1.3-7.7) k/uL POC Glucose (mg/dL) 224 H 136 H (75-99) mg/dL Assessment and Plan Assessment: Patient is an 80 yo here for elective left JACIEL. HTN - labetalol, lisinopril, follow BP DM 2 - metformin - A1C 6.1 1 year ago CAD s/p stents - resume plavix, ASA BID as DVT prophylaxis for 30 days per orhto and then resume ASA 81 mg daily on 07/24. Due to need for high dose ASA and hx of GERD will add protonix X 30 days as GI prophylaxis and can stop on 07/24 (orders added to D/C) - allergic to statins Obesity - structured outpatient weight loss GERD - PPI for 20 days while on BID ASA Chronic: HLD NEYMAR- CPAP Thank you for allowing us to participate in the care of this pleasant patient. Do not hesitate to contact us with questions. Someone can be reached from the [facility] hospitalist group all hours of the day at [phone] or via [employer].
[2020-06-23 17:26] LABS: Hemoglobin A1C 5.7 % (4.0-6.0)
--- NOTE | 2020-06-25 07:51 | CDI ---
Outpatient Documentation Clarification Form Date: 06/25/20 CDS/Manager Combination Name: Miriam Smith Phone: If any questions, call Zenaida Sheehan Web Content Editor at [phone] Patient Name: Maury Pink Admit Date: 06/22/20 Discharge Date: 06/23/20 ATTENTION: The [facility] Coding Staff appreciate your assistance in clarifying documentation. Please respond to the clarification below the line at the bottom and electronically sign. The [facility] Coding staff will review the response and follow-up if needed. Please note: Queries are made part of the Legal Health Record. If you have any questions, please contact the Web Content Editor. Dear Dr. Lee, Please provide clarification as to the laterality of the procedure performed. Procedure note, H&P, and Consult all state left hip. The order for pathology and pathology report state right hip. Please clarify. Thank you for your kind consideration. It is the left hip MTDD
== END 2020-06-23 11:47 | disposition home health service (06) ==
LOC: OR 07:54 → EDSTATUS 11:30 → 4SSUR 13:14 → OR 06-23 11:47
PROVIDERS: ATTEND Orthopaedic Surgery
DX: M16.12 Unilateral primary osteoarthritis, left hip (principal); E11.9 Type 2 diabetes mellitus without complications; I25.10 Atherosclerotic heart disease of native coronary artery without angina pectoris; I11.9 Hypertensive heart disease without heart failure; H91.90 Unspecified hearing loss, unspecified ear; E78.5 Hyperlipidemia, unspecified; E66.9 Obesity, unspecified; Z68.33 Body mass index [BMI] 33.0-33.9, adult; R26.81 Unsteadiness on feet; Z97.3 Presence of spectacles and contact lenses; R41.3 Other amnesia; R05 Cough; Z95.5 Presence of coronary angioplasty implant and graft; Z98.890 Other specified postprocedural states; M54.5 Low back pain; Z95.0 Presence of cardiac pacemaker; Z86.718 Personal history of other venous thrombosis and embolism; Z79.02 Long term (current) use of antithrombotics/antiplatelets; K21.9 Gastro-esophageal reflux disease without esophagitis; G47.33 Obstructive sleep apnea (adult) (pediatric); Z99.89 Dependence on other enabling machines and devices; Z98.42 Cataract extraction status, left eye; Z98.41 Cataract extraction status, right eye; F32.9 Major depressive disorder, single episode, unspecified; Z87.891 Personal history of nicotine dependence; Z80.3 Family history of malignant neoplasm of breast; Z79.84 Long term (current) use of oral hypoglycemic drugs; Z79.1 Long term (current) use of non-steroidal anti-inflammatories (NSAID); Z79.82 Long term (current) use of aspirin; Z79.891 Long term (current) use of opiate analgesic; Z79.899 Other long term (current) drug therapy; Z88.8 Allergy status to other drugs, medicaments and biological substances; Z88.4 Allergy status to anesthetic agent; Z88.7 Allergy status to serum and vaccine
CPT/HCPCS: 97110; 97161; 86891; 86900; 86901; 85025; 86850; 88300; 83036; 73501; 27130; P9022; C1776; J2250; J0171; J1644; J1100; J0690 ×3; J2405; J3010; J1885; J2795; J2370; J0735

== ENCOUNTER → 2020-07-07 | Outpatient (CLI) | payer MEDICARE ==
--- NOTE | 2020-07-07 18:35 | CT ---
EXAMINATION TYPE: CT angio chest DATE OF EXAM: 07/07/2020 COMPARISON: None HISTORY: abnormal coagulation profice-stat hold and call CT DLP: 489.10 mGycm Automated exposure control for dose reduction was used. CONTRAST: Performed with IV Contrast, patient injected with 100 mL of Isovue 370. There are 3-D post processed images. The lungs are clear of consolidation. There is minimal subpleural interstitial density in the posteri or lung shane. Heart size is fairly normal. There is no pericardial effusion. There is no pleural ef fusion. Thoracic aorta is intact. There is no aneurysm or dissection. There is no mediastinal adenopathy. The re are no hilar masses. There is normal contrast opacification of the pulmonary arteries. There are no filling defects. There is spurring in the thoracic spine. Sternum is intact. The ribs appear intact. There is moderate arthritic change in the shoulder joints that is worse on the left side. IMPRESSION: No evidence of pulmonary embolism. Minimal pulmonary fibrotic changes. Normal heart.
== END | disposition home or self-care (01) ==
LOC: RADCTMAIN 17:34
PROVIDERS: ATTEND Family Medicine
DX: J84.10 Pulmonary fibrosis, unspecified (principal); R79.1 Abnormal coagulation profile
CPT/HCPCS: 71275; Q9967

== ENCOUNTER → 2021-03-31 | Outpatient (CLI) | payer MEDICARE ==
--- NOTE | 2021-03-31 15:42 | US ---
EXAMINATION TYPE: US carotid duplex BILAT DATE OF EXAM: 03/31/2021 COMPARISON: US 2015 CLINICAL HISTORY: R06.89 Other abnormalities of breathing. EXAM MEASUREMENTS: RIGHT: Peak Systolic Velocity (PSV) cm/sec ----- Right CCA: 72.7 ----- Right ICA: 80.0 ----- Right ECA: 88.8 ICA/CCA ratio: 1.1 RIGHT: End Diastole cm/sec ----- Right CCA: 15.2 ----- Right ICA: 25.2 ----- Right ECA: 11.4 LEFT: Peak Systolic Velocity (PSV) cm/sec ----- Left CCA: 78.1 ----- Left ICA: 74.8 ----- Left ECA: 88.8 ICA/CCA ratio: 1.0 LEFT: End Diastole cm/sec ----- Left CCA: 15.7 ----- Left ICA: 21.1 ----- Left ECA: 10.3 VERTEBRALS (direction of flow): Right Vertebral: Antegrade Left Vertebral: Antegrade Rhythm: Normal No significant stenosis IMPRESSION: No sonographic evidence for hemodynamically significant stenosis of the bilateral carotid arteries. Criteria for Assigning % of Stenosis / Diameter reduction (Estimation based on the indirect measurements of the internal carotid artery velocities (ICA PSV). 1. Normal (no stenosis)=ICA PSV < 125 cm/s: ratio < 2.0: ICA EDV<40 cm/s. 2. Less than 50% stenosis=ICA PSV < 125 cm/s: ratio < 2.0: ICA EDV<40 cm/s. 3. 50 to 69% stenosis=ICA PSV of 125 to 230 cm/s: ration 2.0 ? 4.0: ICA EDV 40-100 cm/s. 4. Greater than 70% stenosis to near occlusion= ICA PSV > 230 cm/s: ratio > 4.0: ICA EDV > 100 cm/s. 5. Near occlusion= ICA PSV velocities may be low or undetectable: variable ratio and ICA EDV. 6. Total occlusion=unable to detect flow.
== END | disposition home or self-care (01) ==
LOC: RADUSWWP 15:01
PROVIDERS: ATTEND Family Medicine
DX: R06.89 Other abnormalities of breathing (principal)
CPT/HCPCS: 93880

== ENCOUNTER 2021-05-17 16:48 | Observation (INO) | payer MEDICARE ==
[2021-05-17] MEDS ORDERED: SODIUM CHLORIDE 0.9% 500 ML 500 ML IV STA (17:17)
[2021-05-17] MEDS ORDERED: MECLIZINE 12.5 MG TAB PO STA (17:17)
--- NOTE | 2021-05-17 17:49 | ED ---
Dizziness HPI - General Chief Complaint: Dizziness Stated Complaint: dizziness, vomiting Source: EMS Mode of arrival: EMS Limitations: physical limitation - History of Present Illness Initial Comments: 81-year-old male with past medical history of coronary artery disease, diabetes who presents to the emergency department with dizziness. Reports that he woke up at 2:00 and everything was spinning. He saw the alarm clock on the side of his bed flickering. He began having nausea with dry vomiting. No history of similar in the past. Denies taking any medications for his symptoms. No recent head trauma. No recent chiropractic manipulations of the neck. Admits to generalized weakness however denies any lateralizing weakness. No fevers, chills or neck pain. No chest pain or shortness of breath. Patient takes Plavix. No other alleviating, precipitating or modifying factors - Related Data Home Medications Medication Instructions Recorded Confirmed lisinopriL [Zestril] 20 mg PO BID 09/27/17 05/17/21 Labetalol HCl 200 mg PO BID 06/16/20 05/17/21 Nitroglycerin Sl Tabs [Nitrostat] 0.4 mg SUBLINGUAL Q5M PRN 06/16/20 05/17/21 Aspirin EC [Ecotrin Low Dose] 81 mg PO DAILY 05/17/21 05/17/21 Cholecalciferol (Vitamin D3) 125 mcg PO DAILY 05/17/21 05/17/21 [Vitamin D3 (125 MCG = 5,000 IU)] Ginkgo Biloba 220 Mg 440 mg PO DAILY 05/17/21 05/17/21 Herbal Allergy Med 1 tab PO DAILY 05/17/21 05/17/21 Horny Goat Caneadea Supplement 1 cap PO DAILY 05/17/21 05/17/21 Multivitamins, Thera [Multivitamin 1 tab PO DAILY 05/17/21 05/17/21 (formulary)] Rivastigmine [Rivastigmine 1 patch TRANSDERM DAILY 05/17/21 05/17/21 9.5MG/24Hr] Testosterol 1 cap PO DAILY 05/17/21 05/17/21 metFORMIN HCL 500 mg PO DAILY 05/17/21 05/17/21 Previous Rx's Medication Instructions Recorded Clopidogrel Bisulfate [Plavix] 75 mg PO DAILY #30 tab 10/05/17 Allergies Allergy/AdvReac Type Severity Reaction Status Date / Time amlodipine Allergy Unknown Verified 05/17/21 18:11 lidocaine [From Xylocaine] Allergy passed out Verified 05/17/21 18:11 Dpasaqa-Gmv-Gxd Reductase Allergy Rash/Hives Verified 05/17/21 18:11 Inhibitor atorvastatin [From Lipitor] AdvReac Rash/Hives Verified 05/17/21 18:11 influenza virus vaccine, AdvReac Unknown Verified 05/17/21 18:11 specific pneumococcal vaccine AdvReac Unknown Verified 05/17/21 18:11 Review of Systems ROS Statement: Those systems with pertinent positive or pertinent negative responses have been documented in the HPI. ROS Other: All systems not noted in ROS Statement are negative. Past Medical History Past Medical History: Coronary Artery Disease (CAD), Chest Pain / Angina, Diabetes Mellitus, Hyperlipidemia, Hypertension, Memory Impairment, Prostate Disorder Additional Past Medical History / Comment(s): arrthymia, enlarged prostate History of Any Multi-Drug Resistant Organisms: None Reported Past Surgical History: Heart Catheterization With Stent Additional Past Surgical History / Comment(s): bilat cataracts removed, left hip, Past Anesthesia/Blood Transfusion Reactions: Previous Problems w/ Anesthesia, Motion Sickness, Postoperative Nausea & Vomiting (PONV) Additional Past Anesthesia/Blood Transfusion Reaction / Comment(s): passed out with a local anesthesia, hemorrhage from groin after heart cath Date of Last Stent Placement:: 10/05/17 Past Psychological History: No Psychological Hx Reported Smoking Status: Former smoker Past Alcohol Use History: None Reported Past Drug Use History: None Reported - Past Family History Mother Family Medical History: Cancer Additional Family Medical History / Comment(s): breast General Exam Limitations: physical limitation General appearance: alert, in no apparent distress Head exam: Present: atraumatic, normocephalic, normal inspection Eye exam: Present: normal appearance, PERRL, EOMI, nystagmus (Horizontal). Absent: scleral icterus, conjunctival injection, periorbital swelling ENT exam: Present: normal exam, mucous membranes moist Neck exam: Present: normal inspection. Absent: tenderness, meningismus, lymphadenopathy Respiratory exam: Present: normal lung sounds bilaterally. Absent: respiratory distress, wheezes, rales, rhonchi, stridor Cardiovascular Exam: Present: regular rate, normal rhythm, normal heart sounds. Absent: systolic murmur, diastolic murmur, rubs, gallop, clicks GI/Abdominal exam: Present: soft, normal bowel sounds. Absent: distended, tenderness, guarding, rebound, rigid Extremities exam: Present: normal inspection, full ROM, normal capillary refill. Absent: tenderness, pedal edema, joint swelling, calf tenderness Back exam: Present: normal inspection Neurological exam: Present: alert, oriented X3, CN II-XII intact Psychiatric exam: Present: normal affect, normal mood Skin exam: Present: warm, dry, intact, normal color. Absent: rash Course Vital Signs 05/17/21 05/17/21 05/17/21 17:04 17:35 19:37 Temperature 98.9 F Pulse Rate 78 56 L 56 L Respiratory 20 18 18 Rate Blood Pressure 189/85 168/72 167/81 O2 Sat by Pulse 96 96 95 Oximetry 05/17/21 05/17/21 20:22 21:38 Temperature 98.7 F Pulse Rate 59 L 57 L Respiratory 18 18 Rate Blood Pressure 157/82 167/96 O2 Sat by Pulse 97 97 Oximetry EKG Findings - EKG Comments: EKG Findings:: EKG demonstrates has pericardial the first-degree block. Rate of 59. MN interval 218. QRS 150. QTC of 471. No acute ST segment elevations or depressions concerning for ischemic changes Medical Decision Making - Medical Decision Making Upon arrival patient was placed in room 28. With her history and physical exam is performed. IV is established and laboratory studies were conducted. He is given 25 mg of meclizine. Laboratory studies are reviewed without acute abnormalities. Patient is reevaluated and continues to have dizziness. He is given a dose of Valium. Sent for CT of his brain as well as CT angiography. CT angiography demonstrates no acute abnormality of head or neck. Moderate stenosis of proximal right ICA. Patient is reevaluated once again in continues to have nystagmus and vertigo. Recommended admission for persistent symptoms which the patient did agree to. Spoke with Dr. Kirkland who agreed to admit the patient. I will consult Dr. Gregorio - Lab Data Result diagrams: 05/17/21 17:38 05/17/21 17:38 Lab Results 05/17/21 05/17/21 05/17/21 Range/Units 17:38 17:38 17:38 WBC 9.6 (3.8-10.6) k/uL RBC 4.74 (4.30-5.90) m/uL Hgb 15.3 (13.0-17.5) gm/dL Hct 43.8 (39.0-53.0) % MCV 92.4 (80.0-100.0) fL MCH 32.2 (25.0-35.0) pg MCHC 34.9 (31.0-37.0) g/dL RDW 12.5 (11.5-15.5) % Plt Count 310 (150-450) k/uL MPV 7.0 Neutrophils % 86 % Lymphocytes % 10 % Monocytes % 3 % Eosinophils % 0 % Basophils % 0 % Neutrophils # 8.2 H (1.3-7.7) k/uL Lymphocytes # 0.9 L (1.0-4.8) k/uL Monocytes # 0.3 (0-1.0) k/uL Eosinophils # 0.0 (0-0.7) k/uL Basophils # 0.0 (0-0.2) k/uL PT 11.4 (9.0-12.0) sec INR 1.1 (<1.2) APTT 21.7 L (22.0-30.0) sec Sodium 137 (137-145) mmol/L Potassium 4.7 (3.5-5.1) mmol/L Chloride 108 H (98-107) mmol/L Carbon Dioxide 20 L (22-30) mmol/L Anion Gap 9 mmol/L BUN 19 (9-20) mg/dL Creatinine 0.91 (0.66-1.25) mg/dL Est GFR (CKD-EPI)AfAm >90 (>60 ml/min/1.73 sqM) Est GFR (CKD-EPI)NonAf 78 (>60 ml/min/1.73 sqM) Glucose 153 H (74-99) mg/dL Calcium 10.2 (8.4-10.2) mg/dL Total Bilirubin 0.6 (0.2-1.3) mg/dL AST 31 (17-59) U/L ALT 19 (4-49) U/L Alkaline Phosphatase 88 (38-126) U/L Troponin I (0.000-0.034) ng/mL Total Protein 6.7 (6.3-8.2) g/dL Albumin 4.3 (3.5-5.0) g/dL 08/10/21 Range/Units 17:38 WBC (3.8-10.6) k/uL RBC (4.30-5.90) m/uL Hgb (13.0-17.5) gm/dL Hct (39.0-53.0) % MCV (80.0-100.0) fL MCH (25.0-35.0) pg MCHC (31.0-37.0) g/dL RDW (11.5-15.5) % Plt Count (150-450) k/uL MPV Neutrophils % % Lymphocytes % % Monocytes % % Eosinophils % % Basophils % % Neutrophils # (1.3-7.7) k/uL Lymphocytes # (1.0-4.8) k/uL Monocytes # (0-1.0) k/uL Eosinophils # (0-0.7) k/uL Basophils # (0-0.2) k/uL PT (9.0-12.0) sec INR (<1.2) APTT (22.0-30.0) sec Sodium (137-145) mmol/L Potassium (3.5-5.1) mmol/L Chloride (98-107) mmol/L Carbon Dioxide (22-30) mmol/L Anion Gap mmol/L BUN (9-20) mg/dL Creatinine (0.66-1.25) mg/dL Est GFR (CKD-EPI)AfAm (>60 ml/min/1.73 sqM) Est GFR (CKD-EPI)NonAf (>60 ml/min/1.73 sqM) Glucose (74-99) mg/dL Calcium (8.4-10.2) mg/dL Total Bilirubin (0.2-1.3) mg/dL AST (17-59) U/L ALT (4-49) U/L Alkaline Phosphatase (38-126) U/L Troponin I <0.012 (0.000-0.034) ng/mL Total Protein (6.3-8.2) g/dL Albumin (3.5-5.0) g/dL Disposition Clinical Impression: Vertigo Disposition: ADMITTED IP TO THIS [facility] Condition: Stable Is patient prescribed a controlled substance at d/c from ED?: No Decision to Admit Reason: Admit from EC Decision Date: 05/17/21 Decision Time: 21:11
[2021-05-17 17:53] LABS: Basophils % (A) 0 %; Eosinophils % (A) 0 %; HCT 43.8 % (39.0-53.0); HGB 15.3 gm/dL (13.0-17.5); Lymphocytes # (A) 0.9 k/uL (1.0-4.8); Lymphocytes % (A) 10 %; MCH 32.2 pg (25.0-35.0); MCHC 34.9 g/dL (31.0-37.0); MCV 92.4 fL (80.0-100.0); Monocytes # (A) 0.3 k/uL (0-1.0); Monocytes % (A) 3 %; Neutrophils # (A) 8.2 k/uL (1.3-7.7); Neutrophils % (A) 86 %; Platelet Count 310 k/uL (150-450); RBC 4.74 m/uL (4.30-5.90); RDW 12.5 % (11.5-15.5); WBC 9.6 k/uL (3.8-10.6)
[2021-05-17 18:04] LABS: ALT 19 U/L (4-49); AST 31 U/L (17-59); African American GFR (CKD) >90 (>60 ml/min/1.73 sqM); Albumin 4.3 g/dL (3.5-5.0); Alkaline Phosphatase 88 U/L (38-126); Anion Gap 9 mmol/L; Blood Urea Nitrogen 19 mg/dL (9-20); Calcium 10.2 mg/dL (8.4-10.2); Carbon Dioxide 20 mmol/L (22-30); Chloride 108 mmol/L (98-107); Glucose 153 mg/dL (74-99); Non-African American GFR(CKD) 78 (>60 ml/min/1.73 sqM); Potassium 4.7 mmol/L (3.5-5.1); Sodium 137 mmol/L (137-145); Total Bilirubin 0.6 mg/dL (0.2-1.3); Total Protein 6.7 g/dL (6.3-8.2)
[2021-05-17 18:07] LABS: INR 1.1 (<1.2); Partial Thromboplastin Time 21.7 sec (22.0-30.0); Prothrombin Time 11.4 sec (9.0-12.0)
--- NOTE | 2021-05-17 19:18 | CT ---
EXAM: CT brain wo con CLINICAL HISTORY: Altered mental status and dizziness. COMPARISON: None TECHNIQUE: Contiguous axial noncontrast images of the brain were obtained. Coronal and sagittal refor mats were generated and reviewed. Automated dose control was used for this exam. FINDINGS: There is no evidence for intracranial hemorrhage, mass effect or midline shift. 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 There is moderate parenchymal volume loss and mild white matter disease. Ventricular size and configuration is within normal limits for degree of parenchymal volume. The paranasal sinuses are clear. The mastoid air cells are clear. No evidence for calvarial fracture. IMPRESSION: No acute intracranial abnormality.
--- NOTE | 2021-05-17 19:41 | CT ---
EXAMINATION TYPE: CT angio head neck DATE OF EXAM: 05/17/2021 HISTORY: ams, dizziness COMPARISON: None available. CT DLP: 947.8 mGycm. Automated Exposure Control for Dose Reduction was Utilized. TECHNIQUE: CTA scan of the head/neck is performed with IV Contrast, patient injected with 65cc mL of Isovue 370, axial images are obtained, coronal and sagittal reformatted images are reviewed. Three-D reconstructed images are created on an independent workstation and reviewed. FINDINGS: There is normal three-vessel branching of the aorta. There is atherosclerotic plaque at the right com mon carotid bulb with approximately 50% stenosis of the right proximal ICA. There is no additional hi gh-grade stenosis, dissection or aneurysm seen in the bilateral common carotid, cervical internal car otid and vertebral arteries. There is no evidence of high-grade stenosis, dissection or aneurysm in the intracranial internal vazquez tid arteries, anterior, middle and posterior cerebral arteries as well as in the imaged vertebral and basilar arteries. The communicating arteries are unremarkable. IMPRESSION: No acute abnormality of the CTA head/neck. Moderate stenosis of the right proximal ICA. NASCET criteria was used in interpretation of this exam?
[2021-05-17] MEDS ORDERED: DIAZEPAM 5 MG/ML 2 ML INJ IVP STA (20:15)
[2021-05-17] MEDS ORDERED: ONDANSETRON 4 MG/2 ML VIAL IVP PRN (21:11)
[2021-05-17] MEDS ORDERED: NALOXONE 0.4 MG/ML 1 ML VIAL IV PRN (21:11)
[2021-05-17] MEDS ORDERED: NITROGLYCERIN SL TABS 0.4 MG TAB SUBLINGUAL PRN (22:17)
[2021-05-17] MEDS ORDERED: ASPIRIN 81 MG PO STA (23:42)
[2021-05-17] MEDS ORDERED: CLOPIDOGREL 75 MG TAB PO STA (23:43)
[2021-05-17] MEDS ORDERED: lisinopriL 20 MG TAB PO STA (23:43)
--- NOTE | 2021-05-18 02:15 | P.HPIM ---
History of Present Illness H&P Date: 05/17/21 Chief Complaint: vertigo 81 year old male with history of CAD, DM , hypertension Patient comes in for vertigo. He never experienced anything similar to this he woke up at 5 in the morning couldn't read the clock as everything was spinning and the clock was jumpy so he went back to sleep thought that after he woke up he would feel better but there was no improvement patient was having dry heaving as he was feeling dizzy with vertigo everything spinning clockwise. He tried to go to the bathroom but struggled to go there as he was holding onto jones due to what seems like a component of ataxia he otherwise denies any focal neuro deficits in his lower or upper extremities. He denies any vision changes he claims that he has chronic tinnitus and decreased hearing in both years. He denies any headache denies any trauma to the head is not on blood thinners but he takes aspirin and Plavix. There were no changes in his medications recently. He does recall since having left hip replacements about 1 year ago he noticed that since then he's been falling more than usual he thought that his left leg was giving out however it has increased in frequency recently almost once or twice a week he would fall without major injuries he feels like his left leg is giving out. He denies any heart racing or skipping beats however over the past 2 weeks he's been noticing some palpitations at times in the morning. Again he never experienced anything like this before Patient otherwise denies any sick contacts any fevers or chills any recent travel he denies any changes in his medications denies any history of stroke denies any focal deficits in his upper or lower extremities denies any difficulty with speech or swallowing the only new thing that he is reporting as the vertigo. In the ED CT of the brain was done showed no acute pathology patient continued to be dizzy was slight improvement with meclizine blood work overall was unremarkable Patient had CTA of the head and neck in the ED again no acute pathology, however it did show moderate stenosis of the right proximal internal carotid artery EKG showed first-degree AV block and bradycardia Review of Systems Pertinent positives as noted in HPI. All other systems were reviewed and are negative Past Medical History Past Medical History: Coronary Artery Disease (CAD), Chest Pain / Angina, Diabetes Mellitus, Hyperlipidemia, Hypertension, Memory Impairment, Prostate Disorder Additional Past Medical History / Comment(s): arrthymia, enlarged prostate History of Any Multi-Drug Resistant Organisms: None Reported Past Surgical History: Heart Catheterization With Stent Additional Past Surgical History / Comment(s): bilat cataracts removed, left hip, Past Anesthesia/Blood Transfusion Reactions: Previous Problems w/ Anesthesia, Motion Sickness, Postoperative Nausea & Vomiting (PONV) Additional Past Anesthesia/Blood Transfusion Reaction / Comment(s): passed out with a local anesthesia, hemorrhage from groin after heart cath Date of Last Stent Placement:: 10/05/17 Past Psychological History: No Psychological Hx Reported Smoking Status: Former smoker Past Alcohol Use History: None Reported Past Drug Use History: None Reported - Past Family History Mother Family Medical History: Cancer Additional Family Medical History / Comment(s): breast Medications and Allergies Home Medications Medication Instructions Recorded Confirmed Type lisinopriL [Zestril] 20 mg PO BID 09/27/17 05/17/21 History Clopidogrel Bisulfate [Plavix] 75 mg PO DAILY #30 tab 10/05/17 05/17/21 Rx Labetalol HCl 200 mg PO BID 06/16/20 05/17/21 History Nitroglycerin Sl Tabs [Nitrostat] 0.4 mg SUBLINGUAL Q5M PRN 06/16/20 05/17/21 History Aspirin EC [Ecotrin Low Dose] 81 mg PO DAILY 05/17/21 05/17/21 History Cholecalciferol (Vitamin D3) 125 mcg PO DAILY 05/17/21 05/17/21 History [Vitamin D3 (125 MCG = 5,000 IU)] Ginkgo Biloba 220 Mg 440 mg PO DAILY 05/17/21 05/17/21 History Herbal Allergy Med 1 tab PO DAILY 05/17/21 05/17/21 History Horny Goat [place] Supplement 1 cap PO DAILY 05/17/21 05/17/21 History Multivitamins, Thera [Multivitamin 1 tab PO DAILY 05/17/21 05/17/21 History (formulary)] Rivastigmine [Rivastigmine 1 patch TRANSDERM DAILY 05/17/21 05/17/21 History 9.5MG/24Hr] Testosterol 1 cap PO DAILY 05/17/21 05/17/21 History metFORMIN HCL 500 mg PO DAILY 05/17/21 05/17/21 History Allergies Allergy/AdvReac Type Severity Reaction Status Date / Time amlodipine Allergy Unknown Verified 05/17/21 18:11 lidocaine [From Xylocaine] Allergy passed out Verified 05/17/21 18:11 [id number] Reductase Allergy Rash/Hives Verified 05/17/21 18:11 Inhibitor atorvastatin [From Lipitor] AdvReac Rash/Hives Verified 05/17/21 18:11 influenza virus vaccine, AdvReac Unknown Verified 05/17/21 18:11 specific pneumococcal vaccine AdvReac Unknown Verified 05/17/21 18:11 Physical Exam Vitals: Vital Signs Temp Pulse Pulse Pulse Resp BP BP 05/18/21 01:50 98 F 74 16 05/18/21 00:00 60 60 18 05/17/21 22:34 98.4 F 59 L 20 178/79 05/17/21 21:38 98.7 F 57 L 18 167/96 05/17/21 20:22 59 L 18 157/82 05/17/21 19:37 56 L 18 167/81 05/17/21 17:35 56 L 18 168/72 05/17/21 17:04 98.9 F 78 20 189/85 BP Pulse Ox 05/18/21 01:50 143/80 93 L 05/18/21 00:00 143/63 95 05/17/21 22:34 97 05/17/21 21:38 97 05/17/21 20:22 97 05/17/21 19:37 95 05/17/21 17:35 96 05/17/21 17:04 96 Intake and Output 05/17/21 05/17/21 05/18/21 14:59 22:59 06:59 Output Total 0 Balance 0 Output: Urine 0 Other: # Voids 0 Weight 115.666 kg Constitutional: No acute distress, conversant, pleasant, hard of hearing Eyes: Anicteric sclerae, moist conjunctiva, Pupils equal round reactive to light, horizontal nystagmus ENMT: NC/AT Oropharynx clear, no erythema, or exudates, ear exam with the arthroscope showed no blockages by earwax, normal light reflexes bilaterally on the tympanic membrane Neck: Supple, FROM, no masses, or JVD No carotid bruits No thyromegaly Lungs: Clear to auscultation Clear to percussion Normal respiratory effort, no accessory muscle use Cardiovascular: Heart regular in rate and rhythm, No murmurs, gallops, or rubs No peripheral edema Abdominal: Soft Nontender, no guarding, rebound or rigidity Abdomen moving with respiration Normoactive bowel sounds No hepatomegaly, No splenomegaly No palpable mass Abdominal hernia reducible noted Skin: Normal temperature, tone, texture, turgor No induration No subcutaneous nodules No rash, lesions No ulcers Extremities: No digital cyanosis No clubbing Pedal pulses intact and symmetrical Radial pulses intact and symmetrical No calf tenderness Psychiatric: Alert and oriented to person, place and time Appropriate affect fair judgement Neuro Muscles Strength 5/5 in all 4 extremities Sensation to light touch grossly present throughout Cranial nerves II-XII grossly intact, decreased hearing bilaterally No focal sensory deficits [id number] exam is unremarkable, finger-nose exam was challenging due to patient having nystagmus and feeling very dizzy having vertigo while doing the exam and he sees my hands shaking Lymphatics: no palpable cervical or supraclavicular , or inguinal lymph nodes Results CBC & Chem 7: 05/17/21 17:38 05/17/21 17:38 Labs: Abnormal Lab Results - Last 24 Hours (Table) 05/17/21 05/17/21 05/17/21 Range/Units 17:38 17:38 17:38 Neutrophils # 8.2 H (1.3-7.7) k/uL Lymphocytes # 0.9 L (1.0-4.8) k/uL APTT 21.7 L (22.0-30.0) sec Chloride 108 H (98-107) mmol/L Carbon Dioxide 20 L (22-30) mmol/L Glucose 153 H (74-99) mg/dL Thrombosis Risk Factor Assmnt - Choose All That Apply Each Factor Represents 1 point: Medical pt on bed rest Other Risk Factors: Yes Each Risk Factor Represents 3 Points: Age 75 years or older Other congenital or acquired thrombophilia - If yes, enter type in comment: No Thrombosis Risk Factor Assessment Total Risk Factor Score: 4 Thrombosis Risk Factor Assessment Level: Moderate Risk Assessment and Plan Assessment: Vertigo with horizontal nystagmus patient having some component suggestive of central lesion of the vestibular system symptoms like ataxia, frequent falling recently, diplopia Neurochecks every 4 hours CTA of the brain no acute pathology, CTA of the head and neck showed moderate stenosis of the right proximal internal carotid artery Check MRI of the brain Neurology consultation Fall precautions Symptomatic control with meclizine Supportive care PT eval Chronic conditions Diabetes mellitus, insulin sliding scale Coronary artery disease resume cardiac meds, resume aspirin and Plavix Hypertension resume cardiac meds CODE STATUS: Full code DVT prophylaxis: Mechanical Discussed with: Patient, ER, RN Anticipated length of stay more than [address]: Home A total of 75 minutes was spent on the care of this complex patient more than 50% of the time was spent in counseling and care coordination.
[2021-05-18 06:08] LABS: Basophils % (A) 0 %; Eosinophils % (A) 0 %; HCT 41.6 % (39.0-53.0); HGB 14.5 gm/dL (13.0-17.5); Lymphocytes # (A) 1.8 k/uL (1.0-4.8); Lymphocytes % (A) 16 %; MCH 32.5 pg (25.0-35.0); MCHC 34.8 g/dL (31.0-37.0); MCV 93.4 fL (80.0-100.0); Monocytes # (A) 0.7 k/uL (0-1.0); Monocytes % (A) 6 %; Neutrophils # (A) 8.8 k/uL (1.3-7.7); Neutrophils % (A) 76 %; Platelet Count 305 k/uL (150-450); RBC 4.45 m/uL (4.30-5.90); RDW 12.7 % (11.5-15.5); WBC 11.5 k/uL (3.8-10.6)
[2021-05-18 06:24] LABS: Calcium 10.4 mg/dL (8.4-10.2); Potassium 4.4 mmol/L (3.5-5.1)
[2021-05-18] MEDS: ASPIRIN 81 MG PO SCH (08:35)
[2021-05-18] MEDS: lisinopriL 20 MG TAB PO SCH ×2 (08:35→19:29)
[2021-05-18] MEDS: LABETALOL 200 MG TAB PO SCH ×2 (08:35→19:29)
[2021-05-18] MEDS: CLOPIDOGREL 75 MG TAB PO SCH (08:35)
[2021-05-18] MEDS: RIVASTIGMINE 9.5MG/24HR PATCH TRANSDERM SCH (08:36)
[2021-05-18] MEDS: INSULIN ASPART (NovoLOG) 100 UNIT/ML VIAL SQ SCH ×4 (08:48→20:21)
[2021-05-18] MEDS: MECLIZINE 25 MG TAB PO PRN ×2 (09:27→17:02)
[2021-05-18 11:27] LABS: Glucose,Whole Blood 157 mg/dL (75-99)
--- NOTE | 2021-05-18 15:55 | P.CNNES ---
History of Present Illness Consult date: 05/18/21 Requesting physician: Millicent Alberts Reason for Consult: Acute intractable vertigo History of Present Illness: Patient is a 81-year-old male came to the hospital yesterday at 4:48 PM by ambulance. As per EMS flow sheet, patient has been complaining of dizziness and throwing up since 2 AM. Patient has history of MA and stents placed and also has diabetes. Patient's neurological examination was nonfocal when checked by the EMS. Patient's vitals at the scene was blood pressure 196/94, pulse rate 57 and respiration 14, saturation 96%, blood sugar 147. Vital signs on arrival blood pressure 189/85, pulse rate 78, temperature 98.9. Patient's most recent blood pressure 162/66. CT head showed no acute process. Paranasal sinuses and mastoid air cells are clear. Patient had a CTA of head and neck, which revealed no acute abnormality of the CTA head and neck. Moderate stenosis of the right proximal ICA. Patient's blood test shows normal CBC, PT/PTT, electrolytes renal functions and hepatic panel. Troponin negative. Patient's previous B12 was normal 773 on 04/14/2020 and folic acid > 24.0. TSH normal. Rheumatoid factor, CAROLYN, Lyme's negative. RPR negative. Patient has history of diabetes for last 2-3 years. Denies any recent upper respiratory or GI infection. Patient does take Plavix 75 mg, lisinopril 20 mg twice a day, labetalol 200 mg twice a day, testosterone, multivitamin, aspirin 81 mg Exelon patch 9.5 mg every 24 hours, vitamin D and ginkgo biloba. Patient states that he has been feeling dizzy since yesterday a.m. It happened while he was laying in the bed, rolled over to look at the clock and everything started spinning. It lasted all day yesterday. He was having severe nausea and vomiting, dry heaving every 10-15 minutes yesterday. It hurts to keep his eyes open. Patient was feeling nystagmus when he was opening his eyes. As a result he was having blurred vision but no loss of vision or diplopia. Patient is very hard of hearing for last 10 years also has chronic tinnitus for 10 years. He denies any recent onset of pressure in the ears or pain. Patient states that when he looks at the floor or ceiling, everything started spinning. Patient denies any numbness or tingling or any focal weakness. He just feels generalized weak. Denies any facial droop or dysphagia. This morning patient states when he woke up, had little throw up but otherwise feels much better now. He is able to see better with less nystagmus. Review of Systems As above in detail. Patient has vertigo, hearing loss. Denies any chest pain, abdominal pain. He has been having nausea vomiting. Complains of generalized weakness. Denies any fever or chills, no rash. No weight loss. No depression. Patient has arthritis. Past Medical History Past Medical History: Coronary Artery Disease (CAD), Chest Pain / Angina, Diabetes Mellitus, Hyperlipidemia, Hypertension, Memory Impairment, Prostate Disorder Additional Past Medical History / Comment(s): arrthymia, enlarged prostate History of Any Multi-Drug Resistant Organisms: None Reported Past Surgical History: Heart Catheterization With Stent Additional Past Surgical History / Comment(s): bilat cataracts removed, left hip, Past Anesthesia/Blood Transfusion Reactions: Previous Problems w/ Anesthesia, Motion Sickness, Postoperative Nausea & Vomiting (PONV) Additional Past Anesthesia/Blood Transfusion Reaction / Comment(s): passed out with a local anesthesia, hemorrhage from groin after heart cath Date of Last Stent Placement:: 10/05/17 Past Psychological History: No Psychological Hx Reported Smoking Status: Former smoker Past Alcohol Use History: None Reported Past Drug Use History: None Reported - Past Family History Mother Family Medical History: Cancer Additional Family Medical History / Comment(s): breast Medications and Allergies Home Medications Medication Instructions Recorded Confirmed Type lisinopriL [Zestril] 20 mg PO BID 09/27/17 05/17/21 History Clopidogrel Bisulfate [Plavix] 75 mg PO DAILY #30 tab 10/05/17 05/17/21 Rx Labetalol HCl 200 mg PO BID 06/16/20 05/17/21 History Nitroglycerin Sl Tabs [Nitrostat] 0.4 mg SUBLINGUAL Q5M PRN 06/16/20 05/17/21 History Aspirin EC [Ecotrin Low Dose] 81 mg PO DAILY 05/17/21 05/17/21 History Cholecalciferol (Vitamin D3) 125 mcg PO DAILY 05/17/21 05/17/21 History [Vitamin D3 (125 MCG = 5,000 IU)] Ginkgo Biloba 220 Mg 440 mg PO DAILY 05/17/21 05/17/21 History Herbal Allergy Med 1 tab PO DAILY 05/17/21 05/17/21 History Horny Goat [place] Supplement 1 cap PO DAILY 05/17/21 05/17/21 History Multivitamins, Thera [Multivitamin 1 tab PO DAILY 05/17/21 05/17/21 History (formulary)] Rivastigmine [Rivastigmine 1 patch TRANSDERM DAILY 05/17/21 05/17/21 History 9.5MG/24Hr] Testosterol 1 cap PO DAILY 05/17/21 05/17/21 History metFORMIN HCL 500 mg PO DAILY 05/17/21 05/17/21 History Allergies Allergy/AdvReac Type Severity Reaction Status Date / Time amlodipine Allergy Unknown Verified 05/17/21 18:11 lidocaine [From Xylocaine] Allergy passed out Verified 05/17/21 18:11 Tassirf-Gvr-Fsq Reductase Allergy Rash/Hives Verified 05/17/21 18:11 Inhibitor atorvastatin [From Lipitor] AdvReac Rash/Hives Verified 05/17/21 18:11 influenza virus vaccine, AdvReac Unknown Verified 05/17/21 18:11 specific pneumococcal vaccine AdvReac Unknown Verified 05/17/21 18:11 Physical Examination - Vital Signs Vital Signs: Vital Signs Temp Pulse Pulse Pulse Resp BP BP 05/18/21 08:00 59 L 60 18 05/18/21 07:00 98.2 F 59 L 18 05/18/21 01:50 98 F 74 16 05/18/21 00:00 60 60 18 05/17/21 22:34 98.4 F 59 L 20 178/79 05/17/21 21:38 98.7 F 57 L 18 167/96 05/17/21 20:22 59 L 18 157/82 05/17/21 19:37 56 L 18 167/81 05/17/21 17:35 56 L 18 168/72 05/17/21 17:04 98.9 F 78 20 189/85 BP Pulse Ox 05/18/21 08:00 05/18/21 07:00 162/66 93 L 05/18/21 01:50 143/80 93 L 05/18/21 00:00 143/63 95 05/17/21 22:34 97 05/17/21 21:38 97 05/17/21 20:22 97 05/17/21 19:37 95 05/17/21 17:35 96 05/17/21 17:04 96 Intake and Output 05/17/21 05/18/21 05/18/21 22:59 06:59 14:59 Intake Total 100 Output Total 0 300 Balance 0 -300 100 Intake: Oral 100 Output: Urine 0 300 Other: Voiding Method Urinal # Voids 0 1 Weight 115.666 kg Patient is an elderly male, in no acute distress. Patient is alert awake oriented to time place and person. Speech and language functions are normal. No aphasia or dysarthria. Attention, concentration and fund of knowledge is adequate. Patient is very hard of hearing. On cranial examination, pupils are round and reacting to light, visual shane are full on confrontation, extraocular muscles are intact. Patient has torsional nystagmus on looking to the right, with fast component to the right. The nystagmus improves and becomes somewhat horizontal in the primary gaze, and there is no nystagmus on looking to the left. Face is symmetric, tongue protrudes to the midline. Palatal elevation and sensation normal, hearing is severely decreased and shoulder shrug normal, facial sensation normal. On muscle strength testing, there is no pronator drift and the strength is normal in arms and legs distally and proximally. Deep tendon reflexes are 2 in the upper limbs, 2 in the lower limbs and plantars downgoing. Sensory to touch is equal with no neglect. Cerebellar function showed no ataxia for [id number], or rdeh-dn-[id number] testing bilaterally. No dysdiadochokinesia. Tone and bulk of muscles normal. Gait not checked. On general examination, there is no carotid bruit or murmur, S1-S2 audible. Abdomen is soft nontender. Chest is clear. Peripheral pulses are present. No edema. Results - Laboratory Findings CBC and BMP: 05/18/21 04:57 05/18/21 04:57 Abnormal Lab Findings: Abnormal Labs 05/17/21 05/17/21 05/17/21 17:38 17:38 17:38 WBC Neutrophils # 8.2 H Lymphocytes # 0.9 L APTT 21.7 L Chloride 108 H Carbon Dioxide 20 L Glucose 153 H POC Glucose (mg/dL) Calcium 05/18/21 05/18/21 05/18/21 04:57 04:57 11:26 WBC 11.5 H Neutrophils # 8.8 H Lymphocytes # APTT Chloride 108 H Carbon Dioxide Glucose 129 H POC Glucose (mg/dL) 157 H Calcium 10.4 H Assessment and Plan Assessment: * Acute onset of vertigo with nystagmus particularly looking to the right. Probable right labyrinthitis/vestibular neuritis. * Chronic hearing loss with tinnitus. * Diabetes * Hypertension * Hyperlipidemia * CAD Plan: * Continue Antivert as needed. * Usually labyrinthitis takes a few days to a week or 2 to resolve. * Patient had a CTA of head and neck performed yesterday, which revealed moderate stenosis right proximal ICA. Recent carotid Doppler from 03/31/2021 revealed no significant stenosis on either side. Continue aspirin, Plavix and Lipitor as patient is taking. * MRI has been ordered by primary physician. We will follow.
--- NOTE | 2021-05-18 16:32 | P.DS ---
Providers Date of admission: 05/17/21 21:11 Expected date of discharge: 05/18/21 Attending physician: Blu Bae MD Consults: 05/17/21 21:12 Consult Physician Urgent Consulting Provider: Brittni Nicholson Consult Reason/Comments: acute intractable vertigo Do you want consulting provider notified?: Yes Primary care physician: [facility] Hospital Course: Patient is an 81-year-old male for history of coronary artery disease, diabetes, and hypertension who presented to the emergency department with complaints of dizziness. In the ER he underwent an extensive evaluation. His initial vital signs were within normal limits. He did get a dose of meclizine in the ER with very little improvement. He underwent a CT brain which showed no acute process. He underwent a CT of the head and neck which showed moderate 50% stenosis of the right internal carotid artery. She was admitted for concerns of possible stroke secondary to vertigo with horizontal nystatin. Neurology was consulted Patient seen and examined at bedside. He continues to have some dizziness. It is consistent whether he is laying flat or getting up and moving around. He denies any chest pain or shortness of breath. He denies any weakness. General: non toxic, no distress, appears at stated age Derm: warm, dry Head: atraumatic, normocephalic, symmetric Eyes: EOMI, no lid lag, anicteric sclera Mouth: no lip lesion, mucus membranes moist, hard of hearing Cardiovascular: S1S2 reg, no murmur, positive posterior tibial pulse bilateral, Lungs: Decreased breath sounds bilateral, no rhonchi, no rales , no accessory muscle use Abdominal: soft, nontender to palpation, no guarding, no appreciable organomegaly Ext: no gross muscle atrophy, no edema, no contractures Neuro: CN II-XI grossly intact, no focal neuro deficits Psych: Alert, oriented, appropriate affect Vertigo, concerns for possible stroke Chronic tenderness Hearing loss -Neurology recommendations reviewed: Likely labyrinthitis/vestibular neuritis. -Await MRI -Telemetry -Aspirin, Plavix, statin -Fall precautions Carotid arterial disease -Aspirin, Plavix, statin Diabetes mellitus type 2 -Hold oral medications, metformin for 48 hours after IV contrast -Sliding-scale insulin Coronary artery disease -Aspirin, Plavix, beta kailee Hypertension -controlled -Lisinopril, labetalol likely home in AM Patient Condition at Discharge: Stable Plan - Discharge Summary Discharge Rx Participant: No New Discharge Prescriptions: No Action lisinopriL [Zestril] 20 mg PO BID Clopidogrel Bisulfate [Plavix] 75 mg PO DAILY #30 tab Labetalol HCl 200 mg PO BID Nitroglycerin Sl Tabs [Nitrostat] 0.4 mg SUBLINGUAL Q5M PRN PRN Reason: Chest Pain Testosterol 1 cap PO DAILY Multivitamins, Thera [Multivitamin (formulary)] 1 tab PO DAILY Herbal Allergy Med 1 tab PO DAILY Aspirin EC [Ecotrin Low Dose] 81 mg PO DAILY Horny Goat [place] Supplement 1 cap PO DAILY Rivastigmine [Rivastigmine 9.5MG/24Hr] 1 patch TRANSDERM DAILY metFORMIN HCL 500 mg PO DAILY Cholecalciferol (Vitamin D3) [Vitamin D3 (125 MCG = 5,000 IU)] 125 mcg PO DAILY Ginkgo Biloba 220 Mg 440 mg PO DAILY Discharge Medication List lisinopriL [Zestril] 20 mg PO BID 09/27/17 [History] Clopidogrel Bisulfate [Plavix] 75 mg PO DAILY #30 tab 10/05/17 [Rx] Labetalol HCl 200 mg PO BID 06/16/20 [History] Nitroglycerin Sl Tabs [Nitrostat] 0.4 mg SUBLINGUAL Q5M PRN 06/16/20 [History] Aspirin EC [Ecotrin Low Dose] 81 mg PO DAILY 05/17/21 [History] Cholecalciferol (Vitamin D3) [Vitamin D3 (125 MCG = 5,000 IU)] 125 mcg PO DAILY 05/17/21 [History] Ginkgo Biloba 220 Mg 440 mg PO DAILY 05/17/21 [History] Herbal Allergy Med 1 tab PO DAILY 05/17/21 [History] Horny Goat [place] Supplement 1 cap PO DAILY 05/17/21 [History] Multivitamins, Thera [Multivitamin (formulary)] 1 tab PO DAILY 05/17/21 [History] Rivastigmine [Rivastigmine 9.5MG/24Hr] 1 patch TRANSDERM DAILY 05/17/21 [History] Testosterol 1 cap PO DAILY 05/17/21 [History] metFORMIN HCL 500 mg PO DAILY 05/17/21 [History] Follow up Appointment(s)/Referral(s): Tamar Jacob MD [Primary Care Provider] - 1-2 days
[2021-05-18 17:34] LABS: Glucose,Whole Blood 106 mg/dL (75-99)
[2021-05-18] MEDS ORDERED: cloNIDine HCL 0.1 MG TAB PO STA (18:19)
[2021-05-18 20:02] LABS: Glucose,Whole Blood 155 mg/dL (75-99)
[2021-05-19 07:15] LABS: Glucose,Whole Blood 118 mg/dL (75-99)
[2021-05-19] MEDS: INSULIN ASPART (NovoLOG) 100 UNIT/ML VIAL SQ SCH ×4 (07:23→21:39)
[2021-05-19] MEDS: lisinopriL 20 MG TAB PO SCH ×2 (08:23→20:32)
[2021-05-19] MEDS: ASPIRIN 81 MG PO SCH (08:23)
[2021-05-19] MEDS: CLOPIDOGREL 75 MG TAB PO SCH (08:23)
[2021-05-19] MEDS: LABETALOL 200 MG TAB PO SCH ×2 (08:30→20:32)
[2021-05-19] MEDS: RIVASTIGMINE 9.5MG/24HR PATCH TRANSDERM SCH (08:30)
[2021-05-19] MEDS: MECLIZINE 25 MG TAB PO PRN (08:34)
--- NOTE | 2021-05-19 11:38 | MR ---
EXAMINATION TYPE: MR brain wo con DATE OF EXAM: 05/19/2021 COMPARISON: CT brain 2 days ago HISTORY: nystagmus, ataxia, vertigo, ? vestibular lesion TECHNIQUE: Multiplanar, multisequence imaging of the brain and brainstem is performed without IV cont rast. FINDINGS: Diffusion weighted images demonstrate no evidence of a recent infarct or other diffusion abnormality. There is moderate ventricular and sulcal prominence. Old infarct left coronal radiata axial image 20 redemonstrated. Midline structures demonstrate normal morphology. The craniocervical junction appears within normal limits. Normal vascular flow voids are present. Mild mucosal thickening ethmoid sinuses bilaterally. Nasal septal deviation again seen. IMPRESSION: 1. No MRI evidence for recent infarct. 2. 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
[2021-05-19 11:53] LABS: Glucose,Whole Blood 131 mg/dL (75-99)
[2021-05-19 17:20] LABS: Glucose,Whole Blood 157 mg/dL (75-99)
[2021-05-19] MEDS ORDERED: predniSONE 20 MG TAB PO STA (19:00)
--- NOTE | 2021-05-19 19:34 | P.PN ---
Subjective Progress Note Date: 05/19/21 Principal diagnosis: dizziness Patient is an 81-year-old male for history of coronary artery disease, diabetes, and hypertension who presented to the emergency department with complaints of dizziness. In the ER he underwent an extensive evaluation. His initial vital signs were within normal limits. He did get a dose of meclizine in the ER with very little improvement. He underwent a CT brain which showed no acute process. He underwent a CT of the head and neck which showed moderate 50% stenosis of the right internal carotid artery. She was admitted for concerns of possible stroke secondary to vertigo with horizontal nystatin. Neurology was consulted and he was diagnosed with subsequent labyrinthitis. MRI brain showed no acute infarct but remote lacunar infarct. He was started on steroids. He was evaluated by physical and occupational therapy. His dizziness was so severe that he was unable to complete most tasks without assistance and redirection. Patient seen and examined at bedside. Dizziness is somewhat better than yesterday, however still significant when sitting and then standing. Feels very unbalanced. Having a slight headache. General: non toxic, no distress, appears at stated age Derm: warm, dry Head: atraumatic, normocephalic, symmetric, hard of hearing Eyes: EOMI, no lid lag, anicteric sclera Mouth: no lip lesion, mucus membranes moist, hard of hearing Cardiovascular: S1S2 reg, no murmur, positive posterior tibial pulse bilateral, Lungs: Decreased breath sounds bilateral, no rhonchi, no rales , no accessory muscle use Abdominal: soft, nontender to palpation, no guarding, no appreciable organomegaly Ext: no gross muscle atrophy, no edema, no contractures Neuro: CN II-XI grossly intact, no focal neuro deficits Psych: Alert, oriented, appropriate affect Vertigo secondary to labyrinthitis, stroke ruled out Chronic tinnitus Hearing loss -Neurology recommendations appreciated -Steroids -Aspirin, Plavix, statin -Fall precautions Carotid arterial disease -Aspirin, Plavix, statin Diabetes mellitus type 2 -Hold oral medications, metformin for 48 hours after IV contrast -Sliding-scale insulin Coronary artery disease -Aspirin, Plavix, beta kailee Hypertension -controlled -Lisinopril, labetalol Likely to long-term facility in a.m. Objective - Vital Signs Vital signs: Vital Signs Temp 98.3 F 05/19/21 15:00 Pulse 61 08/12/21 15:00 Resp 16 05/19/21 15:00 BP 128/73 05/19/21 15:00 Pulse Ox 93 L 05/19/21 15:00 Intake & Output 05/18/21 05/19/21 05/19/21 18:59 06:59 18:59 Intake Total 100 Balance 100 Intake: Oral 100 Other: Voiding Method Urinal Urinal Urinal # Voids 3 1 1 - Labs CBC & Chem 7: 05/18/21 04:57 05/18/21 04:57 Labs: Abnormal Lab Results - Last 24 Hours (Table) 05/18/21 05/19/21 05/19/21 Range/Units 20:01 07:13 11:52 POC Glucose (mg/dL) 155 H 118 H 131 H (75-99) mg/dL 05/19/21 Range/Units 17:18 POC Glucose (mg/dL) 157 H (75-99) mg/dL
[2021-05-19 21:13] LABS: Glucose,Whole Blood 85 mg/dL (75-99)
[2021-05-20 07:11] LABS: Glucose,Whole Blood 172 mg/dL (75-99)
[2021-05-20] MEDS: LABETALOL 200 MG TAB PO SCH ×2 (08:14→21:03)
[2021-05-20] MEDS: RIVASTIGMINE 9.5MG/24HR PATCH TRANSDERM SCH (08:14)
[2021-05-20] MEDS: predniSONE 20 MG TAB PO SCH (08:31)
[2021-05-20] MEDS: CLOPIDOGREL 75 MG TAB PO SCH (08:31)
[2021-05-20] MEDS: lisinopriL 20 MG TAB PO SCH ×2 (08:31→21:03)
[2021-05-20] MEDS: ASPIRIN 81 MG PO SCH (08:32)
[2021-05-20] MEDS: INSULIN ASPART (NovoLOG) 100 UNIT/ML VIAL SQ SCH ×4 (08:32→21:02)
[2021-05-20] MEDS: MECLIZINE 25 MG TAB PO PRN (09:47)
[2021-05-20 11:59] LABS: Glucose,Whole Blood 155 mg/dL (75-99)
--- NOTE | 2021-05-20 12:39 | P.DS ---
Providers Date of admission: 05/17/21 21:11 Expected date of discharge: 05/20/21 Attending physician: Blu Bae MD Consults: 05/17/21 21:12 Consult Physician Urgent Consulting Provider: Brittni Nicholson Consult Reason/Comments: acute intractable vertigo Do you want consulting provider notified?: Yes Primary care physician: Tamar Jacob Hospital Course: Discharge Diagnosis: Vertigo secondary to acute labyrinthitis-likely viral, stroke ruled out Chronic tinnitus Hearing loss Carotid arterial disease Diabetes mellitus type 2 Coronary artery disease Hypertension Hospital Course: Patient is an 81-year-old male for history of coronary artery disease, diabetes, and hypertension who presented to the emergency department with complaints of dizziness. In the ER he underwent an extensive evaluation. His initial vital signs were within normal limits. He did get a dose of meclizine in the ER with very little improvement. He underwent a CT brain which showed no acute process. He underwent a CT of the head and neck which showed moderate 50% stenosis of the right internal carotid artery. She was admitted for concerns of possible stroke secondary to vertigo with horizontal nystatin. Neurology was consulted and he was diagnosed with subsequent labyrinthitis. MRI brain showed no acute infarct but remote lacunar infarct. He was started on steroids. He was evaluated by physical and occupational therapy. His dizziness was so severe that he required assitance and redirection to complete ADLS and was unable to walk further that the room door with physical therapy. He was discharged to rehab in stable condition. He will complete a total of 10 days of steroids. Patient seen and examined at bedside. States his dizziness is somewhat better. Denies any nausea or vomiting, burning vision is better. We discussed that he needs to go to rehab as he is unstable on his feet and almost fell with therapy. Patient is reluctant. Vital signs reviewed and stable. General: non toxic, no distress, appears at stated age Derm: warm, dry, + horizontal nystagmus. Head: atraumatic, normocephalic, symmetric Eyes: EOMI, no lid lag, anicteric sclera Mouth: no lip lesion, mucus membranes moist Cardiovascular: S1S2 reg, no murmur, positive posterior tibial pulse bilateral, Lungs: CTA bilateral, no rhonchi, no rales , no accessory muscle use Abdominal: soft, nontender to palpation, no guarding, no appreciable organomegaly Ext: no gross muscle atrophy, no edema, no contractures Neuro: CN II-XI grossly intact, no focal neuro deficits Psych: Alert, oriented, appropriate affect A total of 25 minutes of time were spent preparing this complex discharge summary . Patient Condition at Discharge: Stable Plan - Discharge Summary Discharge Rx Participant: No New Discharge Prescriptions: New Meclizine [Antivert] 25 mg PO TID PRN #15 tab PRN Reason: Vertigo predniSONE [Deltasone] 0 mg PO DIRECTED #8 tab Continue lisinopriL [Zestril] 20 mg PO BID Clopidogrel Bisulfate [Plavix] 75 mg PO DAILY #30 tab Labetalol HCl 200 mg PO BID Nitroglycerin Sl Tabs [Nitrostat] 0.4 mg SUBLINGUAL Q5M PRN PRN Reason: Chest Pain Multivitamins, Thera [Multivitamin (formulary)] 1 tab PO DAILY Aspirin EC [Ecotrin Low Dose] 81 mg PO DAILY Rivastigmine [Rivastigmine 9.5MG/24Hr] 1 patch TRANSDERM DAILY metFORMIN HCL 500 mg PO DAILY Cholecalciferol (Vitamin D3) [Vitamin D3 (125 MCG = 5,000 IU)] 125 mcg PO DAILY Ginkgo Biloba 220 Mg 440 mg PO DAILY Discontinued Testosterol 1 cap PO DAILY Herbal Allergy Med 1 tab PO DAILY Horny Goat [place] Supplement 1 cap PO DAILY Discharge Medication List lisinopriL [Zestril] 20 mg PO BID 09/27/17 [History] Clopidogrel Bisulfate [Plavix] 75 mg PO DAILY #30 tab 10/05/17 [Rx] Labetalol HCl 200 mg PO BID 06/16/20 [History] Nitroglycerin Sl Tabs [Nitrostat] 0.4 mg SUBLINGUAL Q5M PRN 06/16/20 [History] Aspirin EC [Ecotrin Low Dose] 81 mg PO DAILY 05/17/21 [History] Cholecalciferol (Vitamin D3) [Vitamin D3 (125 MCG = 5,000 IU)] 125 mcg PO DAILY 05/17/21 [History] Ginkgo Biloba 220 Mg 440 mg PO DAILY 05/17/21 [History] Multivitamins, Thera [Multivitamin (formulary)] 1 tab PO DAILY 05/17/21 [History] Rivastigmine [Rivastigmine 9.5MG/24Hr] 1 patch TRANSDERM DAILY 05/17/21 [History] metFORMIN HCL 500 mg PO DAILY 05/17/21 [History] Meclizine [Antivert] 25 mg PO TID PRN #15 tab 05/20/21 [Rx] predniSONE [Deltasone] 0 mg PO DIRECTED #8 tab 05/20/21 [Rx] Follow up Appointment(s)/Referral(s): Tamar Jacob MD [Primary Care Provider] - 1-2 days Activity/Diet/Wound Care/Special Instructions: Activity: up with assistance, fall precautions Diet: heart healthy Special Instructions: Prednisone 40 mg for 2 days, then 20 mg for 2 days, then 10 mg for 4 days Discharge Disposition: TRANSFER TO SNF/ECF
[2021-05-20 17:24] LABS: Glucose,Whole Blood 186 mg/dL (75-99)
[2021-05-20 20:16] LABS: Glucose,Whole Blood 200 mg/dL (75-99)
[2021-05-21 07:50] LABS: Glucose,Whole Blood 129 mg/dL (75-99)
[2021-05-21] MEDS: ASPIRIN 81 MG PO SCH (08:11)
[2021-05-21] MEDS: lisinopriL 20 MG TAB PO SCH (08:11)
[2021-05-21] MEDS: CLOPIDOGREL 75 MG TAB PO SCH (08:11)
[2021-05-21] MEDS: RIVASTIGMINE 9.5MG/24HR PATCH TRANSDERM SCH (08:11)
[2021-05-21] MEDS: LABETALOL 200 MG TAB PO SCH (08:11)
[2021-05-21] MEDS: predniSONE 20 MG TAB PO SCH (08:11)
[2021-05-21] MEDS: INSULIN ASPART (NovoLOG) 100 UNIT/ML VIAL SQ SCH ×2 (08:11→14:16)
[2021-05-21 12:23] LABS: Glucose,Whole Blood 125 mg/dL (75-99)
--- NOTE | 2021-05-21 15:03 | P.PN ---
Subjective Progress Note Date: 05/28/21 Principal diagnosis: CC: Dizziness Patient states that his dizziness is improving. He is wondering when he'll be [facility]. 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 Psych - Calm and cooperative - Labs CBC & Chem 7: 05/18/21 04:57 05/18/21 04:57 Labs: Abnormal Lab Results - Last 24 Hours (Table) 05/20/21 05/20/21 05/21/21 Range/Units 17:23 20:15 07:48 POC Glucose (mg/dL) 186 H 200 H 129 H (75-99) mg/dL 05/21/21 Range/Units 12:22 POC Glucose (mg/dL) 125 H (75-99) mg/dL Assessment and Plan Assessment: Vertigo secondary to labyrinthitis, stroke ruled out Chronic tinnitus Hearing loss -Neurology recommendations appreciated -Steroids -Aspirin, Plavix, statin -Fall precautions -Improving Carotid arterial disease -Aspirin, Plavix, statin Diabetes mellitus type 2 -Hold oral medications, metformin for 48 hours after IV contrast -Sliding-scale insulin Coronary artery disease -Aspirin, Plavix, beta kailee Hypertension -controlled -Lisinopril, labetalol Dispo: Awaiting for prior authorization so that patient can be [facility] facility
[2021-05-21 15:13] VITALS: BP 136/78; PULSE 63; RESP 16; TEMP 98.2
[2021-05-21] MEDS: MECLIZINE 25 MG TAB PO PRN (16:12)
--- NOTE | 2021-05-21 16:45 | P.DS ---
Providers Date of admission: 05/17/21 21:11 Expected date of discharge: 05/21/21 Attending physician: Blu Bae MD Consults: 05/17/21 21:12 Consult Physician Urgent Consulting Provider: Brittni Nicholson Consult Reason/Comments: acute intractable vertigo Do you want consulting provider notified?: Yes Primary care physician: Tamar Jacob Hospital Course: Discharge Diagnosis: Vertigo secondary to acute labyrinthitis-likely viral, stroke ruled out Chronic tinnitus Hearing loss Carotid arterial disease Diabetes mellitus type 2 Coronary artery disease Hypertension Hospital Course: Patient is an 81-year-old male for history of coronary artery disease, diabetes, and hypertension who presented to the emergency department with complaints of dizziness. In the ER he underwent an extensive evaluation. His initial vital signs were within normal limits. He did get a dose of meclizine in the ER with very little improvement. He underwent a CT brain which showed no acute process. He underwent a CT of the head and neck which showed moderate 50% stenosis of the right internal carotid artery. She was admitted for concerns of possible stroke secondary to vertigo with horizontal nystatin. Neurology was consulted and he was diagnosed with subsequent labyrinthitis. MRI brain showed no acute infarct but remote lacunar infarct. He was started on steroids. He was evaluated by physical and occupational therapy. His dizziness was so severe that he required assitance and redirection to complete ADLS and was unable to walk further that the room door with physical therapy. He was discharged to rehab in stable condition. He will complete a total of 10 days of steroids. At the time of discharge patient reported that his dizziness was improving General examination - Alert and Oriented 3 in NAD Heart - + S1S2 no murmurs Lungs - Clear to auscultation Abdomen soft NT ND +ve BS Extremities - No edema [employer] - Moving all 4 extremities spontaneously Psych - Calm and cooperative A total of 25 minutes of time were spent preparing this complex discharge summary . Patient Condition at Discharge: Stable Plan - Discharge Summary Discharge Rx Participant: No New Discharge Prescriptions: New Meclizine [Antivert] 25 mg PO TID PRN #15 tab PRN Reason: Vertigo predniSONE [Deltasone] 0 mg PO DIRECTED #8 tab Continue lisinopriL [Zestril] 20 mg PO BID Clopidogrel Bisulfate [Plavix] 75 mg PO DAILY #30 tab Labetalol HCl 200 mg PO BID Nitroglycerin Sl Tabs [Nitrostat] 0.4 mg SUBLINGUAL Q5M PRN PRN Reason: Chest Pain Multivitamins, Thera [Multivitamin (formulary)] 1 tab PO DAILY Aspirin EC [Ecotrin Low Dose] 81 mg PO DAILY Rivastigmine [Rivastigmine 9.5MG/24Hr] 1 patch TRANSDERM DAILY metFORMIN HCL 500 mg PO DAILY Cholecalciferol (Vitamin D3) [Vitamin D3 (125 MCG = 5,000 IU)] 125 mcg PO DAILY Ginkgo Biloba 220 Mg 440 mg PO DAILY Discontinued Testosterol 1 cap PO DAILY Herbal Allergy Med 1 tab PO DAILY Horny Goat [place] Supplement 1 cap PO DAILY Discharge Medication List lisinopriL [Zestril] 20 mg PO BID 09/27/17 [History] Clopidogrel Bisulfate [Plavix] 75 mg PO DAILY #30 tab 10/05/17 [Rx] Labetalol HCl 200 mg PO BID 06/16/20 [History] Nitroglycerin Sl Tabs [Nitrostat] 0.4 mg SUBLINGUAL Q5M PRN 06/16/20 [History] Aspirin EC [Ecotrin Low Dose] 81 mg PO DAILY 05/17/21 [History] Cholecalciferol (Vitamin D3) [Vitamin D3 (125 MCG = 5,000 IU)] 125 mcg PO DAILY 05/17/21 [History] Ginkgo Biloba 220 Mg 440 mg PO DAILY 05/17/21 [History] Multivitamins, Thera [Multivitamin (formulary)] 1 tab PO DAILY 05/17/21 [History] Rivastigmine [Rivastigmine 9.5MG/24Hr] 1 patch TRANSDERM DAILY 05/17/21 [History] metFORMIN HCL 500 mg PO DAILY 05/17/21 [History] Meclizine [Antivert] 25 mg PO TID PRN #15 tab 05/20/21 [Rx] predniSONE [Deltasone] 0 mg PO DIRECTED #8 tab 05/20/21 [Rx] Follow up Appointment(s)/Referral(s): Tamar Jacob MD [Primary Care Provider] - 1-2 days Activity/Diet/Wound Care/Special Instructions: Activity: up with assistance, fall precautions Diet: heart healthy Special Instructions: Prednisone 40 mg for 2 days, then 20 mg for 2 days, then 10 mg for 4 days Discharge Disposition: TRANSFER TO SNF/ECF
--- NOTE | 2021-05-22 00:34 | P.PN ---
Subjective Progress Note Date: 05/20/21 Patient was seen for a follow-up. Patient states dizziness is much improved. Patient continues to have very hard of hearing. His balance is off, and is planned to be transferred to subacute rehab. Awaiting insurance authorization. Spoke to patient's on the phone. Patient denies any focal symptoms. No slurred speech or diplopia. Objective - Vital Signs Vital signs: Vital Signs Temp 98.2 F 05/21/21 15:00 Pulse 63 05/21/21 15:00 Resp 16 05/21/21 15:00 BP 136/78 05/21/21 15:00 Pulse Ox 95 05/21/21 15:00 Intake & Output 05/21/21 05/21/21 05/22/21 06:59 18:59 06:59 Intake Total 180 Output Total 500 Balance -320 Intake: Oral 180 Output: Urine 500 Other: Voiding Method Urinal Urinal # Voids 3 # Bowel Movements 1 - Exam Patient is sitting on the side of the bed. Patient is having his lunch. Speech and language functions are normal. Pupils are round and reactive to light, visual shane are full. Extraocular muscles are intact. Nystagmus has much improved. Less of the examination is nonfocal. No ataxia. - Labs CBC & Chem 7: 05/18/21 04:57 05/18/21 04:57 Labs: Abnormal Lab Results - Last 24 Hours (Table) 05/21/21 05/21/21 Range/Units 07:48 12:22 POC Glucose (mg/dL) 129 H 125 H (75-99) mg/dL Assessment and Plan Assessment: * Acute onset of vertigo with nystagmus particularly looking to the right. Probable right labyrinthitis/vestibular neuritis. * Chronic hearing loss with tinnitus. * Diabetes * Hypertension * Hyperlipidemia * CAD Plan: * Continue Antivert as needed. * Usually labyrinthitis takes a few days to a week or 2 to resolve. * Patient had a CTA of head and neck performed yesterday, which revealed moderate stenosis right proximal ICA. Recent carotid Doppler from 03/31/2021 revealed no significant stenosis on either side. Continue aspirin, Plavix and Lipitor as patient is taking. * MRI revealed no acute process. No recent infarct. 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 * Patient's B12 is 773 on 04/14/2020, folic acid > 24.0 on 10/24/2019. RBC folate normal. * No other neurological workup indicated. Neurologically clear for discharge to rehab facility.
== END 2021-05-21 16:52 ==
LOC: EC 16:48 → 6NMEDSUR 21:11
PROVIDERS: ADMIT Internal Medicine; ATTEND Internal Medicine
DX: H83.01 Labyrinthitis, right ear (principal); I65.21 Occlusion and stenosis of right carotid artery; I44.0 Atrioventricular block, first degree; H93.19 Tinnitus, unspecified ear; H91.90 Unspecified hearing loss, unspecified ear; E11.9 Type 2 diabetes mellitus without complications; Z20.822 Contact with and (suspected) exposure to COVID-19; R00.1 Bradycardia, unspecified; R00.2 Palpitations; I25.10 Atherosclerotic heart disease of native coronary artery without angina pectoris; I10 Essential (primary) hypertension; E78.5 Hyperlipidemia, unspecified; H93.3X9 Disorders of unspecified acoustic nerve; I25.2 Old myocardial infarction; H55.09 Other forms of nystagmus; N40.0 Benign prostatic hyperplasia without lower urinary tract symptoms; H53.8 Other visual disturbances; R29.6 Repeated falls; Z79.02 Long term (current) use of antithrombotics/antiplatelets; Z79.82 Long term (current) use of aspirin; Z79.84 Long term (current) use of oral hypoglycemic drugs; Z79.899 Other long term (current) drug therapy; Z88.8 Allergy status to other drugs, medicaments and biological substances; Z88.7 Allergy status to serum and vaccine; Z88.6 Allergy status to analgesic agent; Z86.73 Personal history of transient ischemic attack (TIA), and cerebral infarction without residual deficits; Z87.891 Personal history of nicotine dependence; Z95.5 Presence of coronary angioplasty implant and graft; Z98.41 Cataract extraction status, right eye; Z98.42 Cataract extraction status, left eye; Z80.3 Family history of malignant neoplasm of breast
CPT/HCPCS: 99284; 93005 ×2; 96361; 96374; 36415; 97530 ×2; 97162; 97535 ×2; 97166; 80053; 80048; 84484 ×3; 85025 ×2; 85610; 85730; 87635; 70496; 70450; 70498; 70551; G0378 ×5; J3360; J7512 ×3; Q9967

== ENCOUNTER 2021-06-15 15:45 | Emergency (ER) | payer MEDICARE ==
--- NOTE | 2021-06-15 15:55 | ED ---
General Adult HPI - General Stated complaint: Possible stroke Time Seen by Provider: 06/15/21 15:45 Source: patient, RN notes reviewed, old records reviewed - History of Present Illness Initial comments: This is an 81-year-old male presents emergency department with past medical history significant for coronary artery disease and stenting. Patient also has history of diabetes. Patient states he went to bed last night was asymptomatic. Patient states when he woke up today was having a hard time shaking because he couldn't puff up his cheeks T-shaped. Patient states he had no problems with coordination or strength of his hands or any numbness of his hands. Patient denies any loss of strength in his legs. Patient denies any visual disturbance. Patient denies any speech disturbance. Patient noticed that his left eye was drying out as well. Patient is able to close his eye entirely. Patient denies any chest pain difficult breathing shortness of breath. Patient denies any other symptoms at this time. - Related Data Home Medications Medication Instructions Recorded Confirmed lisinopriL [Zestril] 20 mg PO BID 09/27/17 06/15/21 Labetalol HCl 200 mg PO BID 06/16/20 06/15/21 Nitroglycerin Sl Tabs [Nitrostat] 0.4 mg SUBLINGUAL Q5M PRN 06/16/20 06/15/21 Aspirin EC [Ecotrin Low Dose] 81 mg PO DAILY 05/17/21 06/15/21 Cholecalciferol (Vitamin D3) 125 mcg PO DAILY 05/17/21 06/15/21 [Vitamin D3 (125 MCG = 5,000 IU)] Ginkgo Biloba 220 Mg 440 mg PO DAILY 05/17/21 06/15/21 Multivitamins, Thera [Multivitamin 1 tab PO DAILY 05/17/21 06/15/21 (formulary)] Rivastigmine [Rivastigmine 1 patch TRANSDERM DAILY 05/17/21 06/15/21 9.5MG/24Hr] metFORMIN HCL 500 mg PO DAILY 05/17/21 06/15/21 Previous Rx's Medication Instructions Recorded Clopidogrel Bisulfate [Plavix] 75 mg PO DAILY #30 tab 10/05/17 Meclizine [Antivert] 25 mg PO TID PRN #15 tab 05/20/21 Famotidine [Pepcid] 20 mg PO BID #20 tablet 06/15/21 valACYclovir HCL 1,000 mg PO TID 10 Days #30 tab 06/15/21 Allergies Allergy/AdvReac Type Severity Reaction Status Date / Time amlodipine Allergy Unknown Verified 06/15/21 16:35 lidocaine [From Xylocaine] Allergy passed out Verified 06/15/21 16:35 Wpwkmon-Qfj-Aji Reductase Allergy Rash/Hives Verified 06/15/21 16:35 Inhibitor atorvastatin [From Lipitor] AdvReac Rash/Hives Verified 06/15/21 16:35 influenza virus vaccine, AdvReac Unknown Verified 06/15/21 16:35 specific pneumococcal vaccine AdvReac Unknown Verified 06/15/21 16:35 Review of Systems ROS Statement: Those systems with pertinent positive or pertinent negative responses have been documented in the HPI. ROS Other: All systems not noted in ROS Statement are negative. Past Medical History Past Medical History: Coronary Artery Disease (CAD), Chest Pain / Angina, Diabetes Mellitus, Hyperlipidemia, Hypertension, Memory Impairment, Prostate Disorder Additional Past Medical History / Comment(s): arrthymia, enlarged prostate History of Any Multi-Drug Resistant Organisms: None Reported Past Surgical History: Heart Catheterization With Stent Additional Past Surgical History / Comment(s): bilat cataracts removed, left hip, Past Anesthesia/Blood Transfusion Reactions: Previous Problems w/ Anesthesia, Motion Sickness, Postoperative Nausea & Vomiting (PONV) Additional Past Anesthesia/Blood Transfusion Reaction / Comment(s): passed out with a local anesthesia, hemorrhage from groin after heart cath Date of Last Stent Placement:: 10/05/17 Past Psychological History: No Psychological Hx Reported Smoking Status: Former smoker Past Alcohol Use History: None Reported Past Drug Use History: None Reported - Past Family History Mother Family Medical History: Cancer Additional Family Medical History / Comment(s): breast General Exam - General Exam Comments Initial Comments: GENERAL: Patient is well-developed and well-nourished. Patient is nontoxic and well- hydrated and is in no acute distress. ENT: Neck is soft and supple. No significant lymphadenopathy is noted. Oropharynx is clear. Moist mucous membranes. Neck has full range of motion without eliciting any pain. EYES: The sclera were anicteric and conjunctiva were pink and moist. Extraocular movements were intact and pupils were equal round and reactive to light. Eyelids were unremarkable. PULMONARY: Unlabored respirations. Good breath sounds bilaterally. No audible rales rhonchi or wheezing was noted. CARDIOVASCULAR: There is a regular rate and rhythm without any murmurs gallops or rubs. ABDOMEN: Soft and nontender with normal bowel sounds. SKIN: Skin is clear with no lesions or rashes and otherwise unremarkable. NEUROLOGIC: Patient is alert and oriented x3. Patient has some facial drooping on the left which includes the forehead. Patient is able to close his left eye but it is much weaker than the right side. Patient has no weakness or numbness in hands or feet. Patient's finger-nose coordination of his hands is normal. MUSCULOSKELETAL: Normal extremities with adequate strength and full range of motion. No lower extremity swelling or edema. No calf tenderness. LYMPHATICS: No significant lymphadenopathy is noted PSYCHIATRIC: Normal psychiatric evaluation. Course Vital Signs 06/15/21 06/15/21 06/15/21 15:52 15:57 16:57 Temperature 98 F Pulse Rate 71 64 65 Respiratory 18 18 18 Rate Blood Pressure 174/105 181/99 156/89 O2 Sat by Pulse 98 95 96 Oximetry Medical Decision Making - Medical Decision Making EKG shows sinus rhythm at 66 bpm HI interval is 248 QRS is 148 QT interval 420 QTC is 440. Patient's EKG shows right bundle branch block. Patient's EKG shows no ST segment elevation or depression. CT of the brain shows no acute abnormality. Dr. 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 Patient was placed on valacyclovir and steroids. - Lab Data Result diagrams: 06/15/21 16:04 06/15/21 16:04 Lab Results 06/15/21 06/15/21 06/15/21 Range/Units 16:04 16:04 16:04 WBC 6.2 (3.8-10.6) k/uL RBC 4.22 L (4.30-5.90) m/uL Hgb 13.7 (13.0-17.5) gm/dL Hct 39.4 (39.0-53.0) % MCV 93.3 (80.0-100.0) fL MCH 32.4 (25.0-35.0) pg MCHC 34.8 (31.0-37.0) g/dL RDW 13.0 (11.5-15.5) % Plt Count 267 (150-450) k/uL MPV 6.5 Neutrophils % 55 % Lymphocytes % 30 % Monocytes % 6 % Eosinophils % 6 % Basophils % 1 % Neutrophils # 3.4 (1.3-7.7) k/uL Lymphocytes # 1.9 (1.0-4.8) k/uL Monocytes # 0.4 (0-1.0) k/uL Eosinophils # 0.4 (0-0.7) k/uL Basophils # 0.0 (0-0.2) k/uL PT 11.2 (9.0-12.0) sec INR 1.1 (<1.2) APTT 24.8 (22.0-30.0) sec Sodium 139 (137-145) mmol/L Potassium 4.3 (3.5-5.1) mmol/L Chloride 109 H (98-107) mmol/L Carbon Dioxide 22 (22-30) mmol/L Anion Gap 8 mmol/L BUN 27 H (9-20) mg/dL Creatinine 1.23 (0.66-1.25) mg/dL Est GFR (CKD-EPI)AfAm 63 (>60 ml/min/1.73 sqM) Est GFR (CKD-EPI)NonAf 55 (>60 ml/min/1.73 sqM) Glucose 133 H (74-99) mg/dL Calcium 10.6 H (8.4-10.2) mg/dL Total Bilirubin 0.3 (0.2-1.3) mg/dL AST 20 (17-59) U/L ALT 14 (4-49) U/L Alkaline Phosphatase 76 (38-126) U/L Troponin I (0.000-0.034) ng/mL Total Protein 6.6 (6.3-8.2) g/dL Albumin 4.1 (3.5-5.0) g/dL 06/15/21 Range/Units 16:04 WBC (3.8-10.6) k/uL RBC (4.30-5.90) m/uL Hgb (13.0-17.5) gm/dL Hct (39.0-53.0) % MCV (80.0-100.0) fL MCH (25.0-35.0) pg MCHC (31.0-37.0) g/dL RDW (11.5-15.5) % Plt Count (150-450) k/uL MPV Neutrophils % % Lymphocytes % % Monocytes % % Eosinophils % % Basophils % % Neutrophils # (1.3-7.7) k/uL Lymphocytes # (1.0-4.8) k/uL Monocytes # (0-1.0) k/uL Eosinophils # (0-0.7) k/uL Basophils # (0-0.2) k/uL PT (9.0-12.0) sec INR (<1.2) APTT (22.0-30.0) sec Sodium (137-145) mmol/L Potassium (3.5-5.1) mmol/L Chloride (98-107) mmol/L Carbon Dioxide (22-30) mmol/L Anion Gap mmol/L BUN (9-20) mg/dL Creatinine (0.66-1.25) mg/dL Est GFR (CKD-EPI)AfAm (>60 ml/min/1.73 sqM) Est GFR (CKD-EPI)NonAf (>60 ml/min/1.73 sqM) Glucose (74-99) mg/dL Calcium (8.4-10.2) mg/dL Total Bilirubin (0.2-1.3) mg/dL AST (17-59) U/L ALT (4-49) U/L Alkaline Phosphatase (38-126) U/L Troponin I <0.012 (0.000-0.034) ng/mL Total Protein (6.3-8.2) g/dL Albumin (3.5-5.0) g/dL Disposition Clinical Impression: Blandon's palsy Disposition: HOME SELF-CARE Condition: Good Additional Instructions: Patient should take felt like a very and prednisone as prescribed. Patient should follow-up with neurology. Prescriptions: Famotidine [Pepcid] 20 mg PO BID #20 tablet valACYclovir HCL 1,000 mg PO TID 10 Days #30 tab Is patient prescribed a controlled substance at d/c from ED?: No Referrals: Tamar Jacob MD [Primary Care Provider] - 1-2 days Time of Disposition: 17:39
[2021-06-15 15:58] VITALS: RESP 18; TEMP 98
[2021-06-15 16:11] LABS: Basophils % (A) 1 %; Eosinophils # (A) 0.4 k/uL (0-0.7); Eosinophils % (A) 6 %; HCT 39.4 % (39.0-53.0); HGB 13.7 gm/dL (13.0-17.5); Lymphocytes # (A) 1.9 k/uL (1.0-4.8); Lymphocytes % (A) 30 %; MCH 32.4 pg (25.0-35.0); MCHC 34.8 g/dL (31.0-37.0); MCV 93.3 fL (80.0-100.0); Mean Platelet Volume 6.5; Monocytes # (A) 0.4 k/uL (0-1.0); Monocytes % (A) 6 %; Neutrophils # (A) 3.4 k/uL (1.3-7.7); Neutrophils % (A) 55 %; Platelet Count 267 k/uL (150-450); RBC 4.22 m/uL (4.30-5.90); WBC 6.2 k/uL (3.8-10.6)
[2021-06-15 16:20] LABS: Albumin 4.1 g/dL (3.5-5.0); Calcium 10.6 mg/dL (8.4-10.2); Potassium 4.3 mmol/L (3.5-5.1); Total Bilirubin 0.3 mg/dL (0.2-1.3); Total Protein 6.6 g/dL (6.3-8.2)
[2021-06-15 16:22] LABS: INR 1.1 (<1.2); Partial Thromboplastin Time 24.8 sec (22.0-30.0); Prothrombin Time 11.2 sec (9.0-12.0)
--- NOTE | 2021-06-15 17:04 | CT ---
EXAM: CT brain wo con for TPA CLINICAL HISTORY: Facial droop. COMPARISON: 05/17/2021. TECHNIQUE: Contiguous axial noncontrast images of the brain were obtained. Coronal and sagittal refor mats were generated and reviewed. Automated dose control was used for this exam. FINDINGS: There is no evidence for intracranial hemorrhage, mass effect or midline shift. There is mild white m atter disease and moderate parenchymal volume loss. 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 Ventricular size and configuration is within normal limits for degree of parenchymal volume. The paranasal sinuses are clear. The mastoid air cells are clear. No evidence for calvarial fracture. IMPRESSION: No acute intracranial abnormality.
--- NOTE | 2021-06-15 17:06 | XR ---
EXAMINATION TYPE: XR chest 2V DATE OF EXAM: 06/15/2021 COMPARISON: NONE HISTORY: Altered mental status. TECHNIQUE: Frontal and lateral views of the chest are obtained. FINDINGS: There is no focal air space opacity, pleural effusion, or pneumothorax seen. The cardiac silhouette size is within normal limits. The osseous structures are intact. IMPRESSION: No acute cardiopulmonary process.
[2021-06-15] MEDS ORDERED: FAMOTIDINE 20 MG TAB PO STA (18:06)
--- NOTE | 2021-06-15 18:07 | P.CNNES ---
History of Present Illness Consult date: 06/15/21 Requesting physician: Alo Sterling Reason for Consult: Possible Blandon's palsy History of Present Illness: Patient is a 81-year-old male came to the hospital today by ambulance at 3:45 PM. EMS flow sheet not available in the chart. Patient states that he woke up this morning and look at the mirror and felt his mouth was slightly droopy, but very little. This afternoon, his left eye started bothering, as if the eye is open and he needed to blink. When the physical therapist came, it was more pronounced. He therefore came to the hospital for further evaluation. Patient denies any headache, hyperacusis, or change in taste sensation. Patient is noticing excessive lacrimation from the left eye. Patient denies any focal numbness tingling or focal weakness or paralysis. He does have slight slurred speech because of left facial weakness. Denies any dysphagia. Patient's blood pressure was 174/105, pulse rate 71, temperature 98.0. EKG shows sinus rhythm with first-degree AV block. Right bundle branch block. CT head showed no acute process. Patient's blood test shows normal WBC, hemoglobin 13.7, platelet 267. PT/PTT is normal. Electrolytes are normal, BUN 27, creatinine 1.23. Hepatic panel normal, troponin negative. Patient recently came to the hospital on 05/17/2021 and was seen by myself on 05/18/2021 for acute intractable vertigo. He was diagnosed with labyrinthitis. Patient states that after the vertigo, he lost hearing from the left ear. Patient was recommended to follow with the ENT specialist, but he has not done so far. Patient has history of [place], stents and also had diabetes. Patient's examination was nonfocal at that time. CTA of head and neck revealed no acute abnormality of the CTA head and neck. Moderate stenosis of the proximal right ICA. Patient's previous B12 was normal 773 on 04/14/2020 and folic acid 24.0. Rheumatoid factor, CAROLYN negative. Patient had a carotid Doppler on 03/31/2021, which revealed no significant stenosis of bilateral ICA. Antegrade flow in both vertebral arteries. Patient had an MRI of the brain on 05/19/2021, which was normal. Patient has history of diabetes for last 2-3 years. Patient does take Plavix 75 mg, lisinopril 20 mg twice a day, labetalol 200 mg twice a day, testosterone, metformin, multivitamin, aspirin 81 mg, Exelon patch 9.5 mg every 24 hours and vitamin D. Patient has significant hearing loss for last 10 years and also has chronic tinnitus for 10 years. However his left-sided hearing loss occurred a month ago. Review of Systems As above in detail. Denies any chest pain shortness of breath, wheezing or cough. Denies any abdominal pain nausea vomiting diarrhea. No headache. No double vision or loss of vision. No fever or chills. Past Medical History Past Medical History: Coronary Artery Disease (CAD), Chest Pain / Angina, Diabetes Mellitus, Hyperlipidemia, Hypertension, Memory Impairment, Prostate D isorder Additional Past Medical History / Comment(s): arrthymia, enlarged prostate History of Any Multi-Drug Resistant Organisms: None Reported Past Surgical History: Heart Catheterization With Stent Additional Past Surgical History / Comment(s): bilat cataracts removed, left hip, Past Anesthesia/Blood Transfusion Reactions: Previous Problems w/ Anesthesia, Motion Sickness, Postoperative Nausea & Vomiting (PONV) Additional Past Anesthesia/Blood Transfusion Reaction / Comment(s): passed out with a local anesthesia, hemorrhage from groin after heart cath Date of Last Stent Placement:: 10/05/17 Past Psychological History: No Psychological Hx Reported Smoking Status: Former smoker Past Alcohol Use History: None Reported Past Drug Use History: None Reported - Past Family History Mother Family Medical History: Cancer Additional Family Medical History / Comment(s): breast Medications and Allergies Home Medications Medication Instructions Recorded Confirmed Type lisinopriL [Zestril] 20 mg PO BID 09/27/17 06/15/21 History Clopidogrel Bisulfate [Plavix] 75 mg PO DAILY #30 tab 10/05/17 06/15/21 Rx Labetalol HCl 200 mg PO BID 06/16/20 06/15/21 History Nitroglycerin Sl Tabs [Nitrostat] 0.4 mg SUBLINGUAL Q5M PRN 06/16/20 06/15/21 History Aspirin EC [Ecotrin Low Dose] 81 mg PO DAILY 05/17/21 06/15/21 History Cholecalciferol (Vitamin D3) 125 mcg PO DAILY 05/17/21 06/15/21 History [Vitamin D3 (125 MCG = 5,000 IU)] Ginkgo Biloba 220 Mg 440 mg PO DAILY 05/17/21 06/15/21 History Multivitamins, Thera [Multivitamin 1 tab PO DAILY 05/17/21 06/15/21 History (formulary)] Rivastigmine [Rivastigmine 1 patch TRANSDERM DAILY 05/17/21 06/15/21 History 9.5MG/24Hr] metFORMIN HCL 500 mg PO DAILY 05/17/21 06/15/21 History Meclizine [Antivert] 25 mg PO TID PRN #15 tab 05/20/21 06/15/21 Rx valACYclovir HCL 1,000 mg PO TID 10 Days #30 tab 06/15/21 Rx Allergies Allergy/AdvReac Type Severity Reaction Status Date / Time amlodipine Allergy Unknown Verified 06/15/21 16:35 lidocaine [From Xylocaine] Allergy passed out Verified 06/15/21 16:35 Vyjtqiq-Cbo-Kbp Reductase Allergy Rash/Hives Verified 06/15/21 16:35 Inhibitor atorvastatin [From Lipitor] AdvReac Rash/Hives Verified 06/15/21 16:35 influenza virus vaccine, AdvReac Unknown Verified 06/15/21 16:35 specific pneumococcal vaccine AdvReac Unknown Verified 06/15/21 16:35 Physical Examination - Vital Signs Vital Signs: Vital Signs Temp Pulse Resp BP Pulse Ox 06/15/21 15:52 98 F 71 18 174/105 98 Intake and Output 06/15/21 06/15/21 06/15/21 06:59 14:59 22:59 Other: Weight 124.148 kg Patient is an elderly male, very pleasant, in no acute distress. Patient is alert awake oriented to time place and person. Speech and language functions are normal. Attention, concentration and fund of knowledge is a dequate. On cranial examination, pupils are round and reacting to light, visual shane are full on confrontation, with no neglect on double simultaneous termination, extraocular muscles are intact with no nystagmus. Patient has left facial weakness, peripheral type, involving the upper and lower part of the face. Patient's tongue protrudes to the midline. Palatal elevation is symmetric bilaterally, and palatal sensation normal, hearing is severely decreased on the left, and moderately in the right and shoulder shrug normal, facial sensation normal. Shoulder shrug normal. On muscle strength testing, there is no pronator drift and the strength is normal in arms and legs distally and proximally. Deep tendon reflexes are 2 in the upper limbs, 2 in the lower limbs and plantars downgoing. Sensory to touch is equal with no neglect on double simultaneous stimulation. Cerebellar function showed no ataxia for ntaolr-ea-belb testing. No dysdiadochokinesia. Tone and bulk of muscles normal. Gait deferred. On general examination, there is no carotid bruit or murmur, S1-S2 audible. Ab domen is soft nontender. Chest is clear. Peripheral pulses are present. No edema. 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 * Patient has recent history of labyrinthitis/vestibular neuronitis on the left side also on 05/17/2021. * Left hearing loss on 05/17/2021. * Moderate right ICA stenosis. * Diabetes * Hypertension * Hyperlipidemia * CAD Plan: * Prednisone 60 mg daily for 5 days then decrease by 10 mg daily until off. * Valtrex 1 g 3 times a day for 7 days * Pepcid 20 mg twice a day for gastric ulcer prophylaxis. * Follow up with ENT specialist within 1-2 weeks * Follow up with patient's neurologist Dr. Coelho in 1-2 weeks. * Patient may need outpatient MRI of the IAC with and without contrast. * Continue dual antiplatelet medications. Patient cannot take statins because of ALLERGY. His last lipid panel showed cholesterol 165 and LDL 105 and triglycerides 109 on 03/21/2021. * Diabetes is well-controlled with hemoglobin A1c 5.8 on 05/25/2021. * Neurologically clear for discharge.
[2021-06-15 18:35] VITALS: BP 147/77; PULSE 67
== END 2021-06-15 18:34 | disposition home or self-care (01) ==
LOC: EC 15:45
DX: G51.0 Bell's palsy (principal); I25.10 Atherosclerotic heart disease of native coronary artery without angina pectoris; E11.36 Type 2 diabetes mellitus with diabetic cataract; I10 Essential (primary) hypertension; E78.5 Hyperlipidemia, unspecified; Z79.82 Long term (current) use of aspirin; Z79.84 Long term (current) use of oral hypoglycemic drugs; Z88.7 Allergy status to serum and vaccine; Z88.1 Allergy status to other antibiotic agents; Z87.891 Personal history of nicotine dependence
CPT/HCPCS: 36415; 70450; 71046; 80053; 84484; 85025; 85610; 85730; 93005; 99285

== ENCOUNTER → 2021-06-27 | Outpatient (CLI) | payer MEDICARE ==
--- NOTE | 2021-06-27 20:54 | MR ---
EXAMINATION TYPE: MR iac wo/w con DATE OF EXAM: 06/27/2021 COMPARISON: MR brain 05/19/2021 HISTORY: Sudden left ear hearing loss, vertigo. TECHNIQUE: Multiplanar, multisequence images of the brain and brainstem is performed without and with IV contras t, utilizing 11 mL intravenous Gadavist, small [id number] and high resolution images through the i nternal auditory canals . FINDINGS: Diffusion weighted images demonstrate no evidence of a recent infarct or other diffusion ab normality. There is no extra-axial fluid collection or significant change in white matter signal abn ormality. The ventricular system and cisternal spaces are normal in size and appearance. The brain volume is age appropriate, stable, there is cortical atrophy, some limited encephalomalacia is presen t in the periventricular location on the left, consistent with remote infarct. At the level of the internal auditory canals there is no evident abnormal soft tissue, no cerebellopo ntine angle mass. Midline structures demonstrate normal morphology. The craniocervical junction appears within normal limits. Post contrast images demonstrate no abnormal enhancement. The dural venous sinuses appear pa tent. The visualized sinuses are remarkable for mucosal disease in the bilateral maxillary sinuses, e thmoid air cells and the globes are intact. IMPRESSION: No internal auditory canal mass is evident, stable brain MRI from approximately one month prior. Sinus disease.
== END | disposition home or self-care (01) ==
LOC: RADMRIMAIN 14:34
PROVIDERS: ATTEND Otolaryngology
DX: R42 Dizziness and giddiness (principal); H91.92 Unspecified hearing loss, left ear
CPT/HCPCS: 70553; A9585

== ENCOUNTER 2022-05-23 14:30 | Emergency (ER) | payer MEDICARE ==
[2022-05-23 14:40] VITALS: BP 133/62; PULSE 68; RESP 18; TEMP 97.7
--- NOTE | 2022-05-23 15:09 | XR ---
EXAMINATION TYPE: XR wrist complete LT DATE OF EXAM: 05/23/2022 COMPARISON: NONE HISTORY: Pain TECHNIQUE: Four views submitted. FINDINGS: Chronic deformity of the ulna and radius. There is a linear lucency noted on the oblique view through the radius is very new fracture. IMPRESSION: 1. There is a lucency extending to the articular surface of the distal radius suspicious for a new fr acture with mild displacement. 2. Chronic ulnar styloid fracture.
--- NOTE | 2022-05-23 15:43 | CT ---
EXAMINATION TYPE: CT brain cspine wo con DATE OF EXAM: 05/23/2022 COMPARISON: 06/15/2021 HISTORY: Fall. Neck pain CT DLP: 1789.2 mGycm Automated exposure control for dose reduction was used. TECHNIQUE: CT scan of the head and cervical spine are performed without contrast. FINDINGS: CT BRAIN NONCONTRAST: Hyperostosis of the calvarium. There is moderate generalized degenerative cortez es with low attenuation white matter which is nonspecific. Findings most likely the basis of remote w opal matter ischemia and are similar to prior exam. Area of focal low attenuation involving the basal ganglia bilaterally but greater on the left is compatible with remote ischemia. A calcification is s een in the region of the anterior cerebral artery. CT CERVICAL SPINE NONCONTRAST: There is marked arthropathy of the atlantoaxial joint with cystic change involving the odontoid which appears degenerative. Severe multilevel degenerative disc disease and facet arthropathy. Osteopenic change seen with small focal lucencies in the basis of osteopenia. Correlate clinically to exclude hi story of myeloproliferative disorder or multiple myeloma. High-resolution limits assessment of the ex am. There is suggestion either flowing anterior osteophytes or a previous fusion of the cervical spin e. Correlate clinically. IMPRESSION: 1. There is no acute fracture or dislocation evident in the cervical spine. Severe multilevel degener ative disc disease and facet arthropathy with multilevel foraminal encroachment. Recommend follow-up MRI to assess for canal stenosis. 2. No acute intracranial hemorrhage, mass effect, or midline shift is seen. Degenerative and remote i schemic change noted.
--- NOTE | 2022-05-23 19:30 | ED ---
Fall HPI - General Chief Complaint: Fall Stated Complaint: Fall Time Seen by Provider: 05/23/22 16:41 Source: patient, family, RN notes reviewed Mode of arrival: wheelchair Limitations: no limitations - History of Present Illness Initial Comments: This is an 82-year-old male who presents to the emergency department for a fall. Patient states that he went to stand up and stepped on a barbell. He subsequently fell backwards and hit his head. Also states that he landed on his left wrist and currently has pain there as well. He is on Eliquis daily. Denies any loss of consciousness or prolonged downtime. The fall was not witnessed. He was able to get up on his own. Denies any fevers, chills, sore throat, cough, dyspnea, chest pain, p alpitations, abdominal pain, nausea, vomiting, or diarrhea. MD Complaint: fall Fall Witnessed: no Place Fall Occurred: home Loss of Consciousness: none Prolonged Down Time?: no Location: head Location - Extremities: Left: Arm Context: tripped/slipped - Related Data Home Medications Medication Instructions Recorded Confirmed lisinopriL [Zestril] 20 mg PO BID 09/27/17 06/15/21 Labetalol HCl 200 mg PO BID 06/16/20 06/15/21 Nitroglycerin Sl Tabs [Nitrostat] 0.4 mg SUBLINGUAL Q5M PRN 06/16/20 06/15/21 Aspirin EC [Ecotrin Low Dose] 81 mg PO DAILY 05/17/21 06/15/21 Cholecalciferol (Vitamin D3) 125 mcg PO DAILY 05/17/21 06/15/21 [Vitamin D3 (125 MCG = 5,000 IU)] Ginkgo Biloba 220 Mg 440 mg PO DAILY 05/17/21 06/15/21 Multivitamins, Thera [Multivitamin 1 tab PO DAILY 05/17/21 06/15/21 (formulary)] Rivastigmine [Rivastigmine 1 patch TRANSDERM DAILY 05/17/21 06/15/21 9.5MG/24Hr] metFORMIN HCL 500 mg PO DAILY 05/17/21 06/15/21 Previous Rx's Medication Instructions Recorded Clopidogrel Bisulfate [Plavix] 75 mg PO DAILY #30 tab 10/05/17 Meclizine [Antivert] 25 mg PO TID PRN #15 tab 05/20/21 Famotidine [Pepcid] 20 mg PO BID #20 tablet 06/15/21 valACYclovir HCL [Valacyclovir] 1,000 mg PO TID 10 Days #30 tab 06/15/21 Econazole Nitrate [Econazole 1 applic TOPICAL BID 21 Days #30 05/23/22 Nitrate 1%] gram HYDROcodone/APAP 5-325MG [[place] 1 tab PO Q6HR PRN 3 Days #12 tab 05/23/22 5-325] Allergies Allergy/AdvReac Type Severity Reaction Status Date / Time amlodipine Allergy Unknown Verified 05/23/22 14:40 lidocaine [From Xylocaine] Allergy passed out Verified 05/23/22 14:40 Suslbxw-GQM-GwG Reductase Allergy Rash/Hives Verified 05/23/22 14:40 Inhibitor [Ycakrtu-Jci-Bil Reductase Inhibitor] atorvastatin [From Lipitor] AdvReac Rash/Hives Verified 05/23/22 14:40 influenza virus vaccine, AdvReac Unknown Verified 05/23/22 14:40 specific pneumococcal vaccine AdvReac Unknown Verified 05/23/22 14:40 Review of Systems ROS Statement: Those systems with pertinent positive or pertinent negative responses have been documented in the HPI. ROS Other: All systems not noted in ROS Statement are negative. Past Medical History Past Medical History: Coronary Artery Disease (CAD), Chest Pain / Angina, Diabetes Mellitus, Hyperlipidemia, Hypertension, Memory Impairment, Prostate Disorder Additional Past Medical History / Comment(s): arrthymia, enlarged prostate History of Any Multi-Drug Resistant Organisms: None Reported Past Surgical History: Heart Catheterization With Stent Additional Past Surgical History / Comment(s): bilat cataracts removed, left hip, Past Anesthesia/Blood Transfusion Reactions: Previous Problems w/ Anesthesia, Motion Sickness, Postoperative Nausea & Vomiting (PONV) Additional Past Anesthesia/Blood Transfusion Reaction / Comment(s): passed out with a local anesthesia, hemorrhage from groin after heart cath Date of Last Stent Placement:: 10/05/17 Past Psychological History: No Psychological Hx Reported Smoking Status: Former smoker Past Alcohol Use History: None Reported Past Drug Use History: None Reported - Past Family History Mother Family Medical History: Cancer Additional Family Medical History / Comment(s): breast General Exam Limitations: no limitations General appearance: alert, in no apparent distress Head exam: Present: atraumatic, normocephalic, normal inspection, other (Dried blood within his hair and a superficial 3 cm laceration on the parietal region of the scalp. Bleeding is controlled.) ENT exam: Present: normal exam, mucous membranes moist, TM's normal bilaterally, normal external ear exam Neck exam: Present: normal inspection. Absent: tenderness, meningismus, lymphadenopathy Respiratory exam: Present: normal lung sounds bilaterally. Absent: respiratory distress, wheezes, rales, rhonchi, stridor Cardiovascular Exam: Present: regular rate, normal rhythm, normal heart sounds. Absent: systolic murmur, diastolic murmur, rubs, gallop, clicks Extremities exam: Present: other (Swelling and mild tenderness over the distal radius on the left. No overlying erythema or ecchymosis. Full active and passive range of motion.) Neurological exam: Present: alert, oriented X3, CN II-XII intact Psychiatric exam: Present: normal affect, normal mood Skin exam: Present: warm, dry, intact, normal color. Absent: rash Course Vital Signs 05/23/22 14:36 Temperature 97.7 F Pulse Rate 68 Respiratory 18 Rate Blood Pressure 133/62 O2 Sat by Pulse 96 Oximetry Procedures - Orthopedic Splinting/Casting Injury #1 Side: left Upper Extremity Injury Location: wrist Upper Extremity Immobilizer: volar splint Medical Decision Making - Medical Decision Making This is an 82-year-old male who presents to the emergency department for a fall. Computed tomography scan of the head and neck revealed no acute irregularities. A computed tomography scan of the wrist revealed a distal radial fracture. Patient was placed in a volar splint. Information for orthopedic follow-up was provided. Hydrogen peroxide was used to clean the blood on his scalp for further evaluation of lacerations. The laceration was found to be on the parietal region, and bleeding was controlled. No areas required repair with jaret. Prescription for a three-day course of [place] provided. Advised to use this sparingly and when his pain is the most severe, and to otherwise take Tylenol. Also reminded him that this is sedating and he should avoid driving or operating machinery when taking this. Patient reported that he has been struggling with a fungal infection around the left finger and left fingernail. He has been using [id number]-btn-[id number] creams that he states have not been effective. Prescription for Econazole cream provided. Advised he avoid using this longer than 2-3 weeks without first checking with his primary care provider. Return precautions reviewed in depth, the patient is instructed to return to the emergency department with any new, worsening, or concerning symptoms. Patient verbalized understanding. This case was discussed in detail with the attending ED physician. Presentation, findings, and treatment plan discussed in detail as well. - Radiology Data Radiology results: report reviewed, image reviewed Disposition Clinical Impression: Radial fracture, Fall Disposition: HOME SELF-CARE Instructions (If sedation given, give patient instructions): Antifungals (On the skin), Wrist Fracture in Adults (ED), Paronychia (ED), Fall Prevention for Older Adults (ED), Splint Care (ED) Additional Instructions: Return to the emergency department with any new, worsening, or concerning symptoms. Take the Tylenol and [place] as needed for pain. Contact orthopedics for a follow-up appointment. Don't use the antifungal cream longer than 3 weeks without checking with your primary care provider. Prescriptions: Econazole Nitrate [Econazole Nitrate 1%] 1 applic TOPICAL BID 21 Days #30 gram HYDROcodone/APAP 5-325MG [[place] 5-325] 1 tab PO Q6HR PRN 3 Days #12 tab PRN Reason: Pain Is patient prescribed a controlled substance at d/c from ED?: Yes If prescribed controlled substance>3 days was MAPS reviewed?: Prescribed <3 Days Referrals: None,Stated [Primary Care Provider] - 1-2 days Ford Moyer DO [Doctor of Osteopathic Medicine] - 1-2 days
== END 2022-05-23 19:51 | disposition home or self-care (01) ==
LOC: EC 14:30
DX: S52.512A Displaced fracture of left radial styloid process, initial encounter for closed fracture (principal); I25.10 Atherosclerotic heart disease of native coronary artery without angina pectoris; E11.9 Type 2 diabetes mellitus without complications; E78.5 Hyperlipidemia, unspecified; I10 Essential (primary) hypertension; Z87.891 Personal history of nicotine dependence; Z88.8 Allergy status to other drugs, medicaments and biological substances; Z88.4 Allergy status to anesthetic agent; Z88.7 Allergy status to serum and vaccine; Z79.82 Long term (current) use of aspirin; Z79.4 Long term (current) use of insulin; Z79.84 Long term (current) use of oral hypoglycemic drugs; W18.09XA Striking against other object with subsequent fall, initial encounter
CPT/HCPCS: 29125; 70450; 72125; 99284

== ENCOUNTER → 2023-08-01 | Outpatient (CLI) | payer MEDICARE ==
[2023-08-02 02:27] LABS: Appearance,Urine Clear (Clear); Bilirubin,Urine Negative (Negative); Blood,Urine Negative (Negative); Color,Urine Yellow (Yellow); Ketones,Urine Negative (Negative); Nitrite,Urine Negative (Negative); PH, Urine 5.5; Specific Gravity,Urine 1.018 (1.001-1.030); Urobilinogen,Urine 0.2 E.U./DL
[2023-08-02 03:28] LABS: Iron 105 UG/DL (65-175); Magnesium 2.3 mg/dL (1.5-2.4); Phosphorus 3.2 mg/dL (2.4-5.1)
[2023-08-02 03:29] LABS: % Iron Saturation 38.04 (15.00-50.00); ALT 14 U/L (10-49); AST 16 U/L (14-35); Albumin 4.6 d/dL (3.8-4.9); Albumin/Globulin Ratio 2.42 Ratio (1.60-3.17); Alkaline Phosphatase 81 U/L (41-126); BUN/Creat Ratio 12.44 Ratio (12.00-20.00); Blood Urea Nitrogen 19.9 mg/dL (9.0-27.0); Calcium 10.8 mg/dL (8.7-10.3); Carbon Dioxide 23.8 mmol/L (21.6-31.8); Chloride 106 mmol/L (96-109); Globulin 1.9 d/dL (1.6-3.3); Glucose 106 mg/dL (70-110); Sodium 141 mmol/L (135-145); Total Bilirubin 0.4 mg/dL (0.3-1.2); Total Iron Binding Capacity 276 UG/DL (228-460); Total Protein 6.5 d/dL (6.2-8.2); Uric Acid 5.5 mg/dL (3.7-8.7)
[2023-08-02 03:51] LABS: HCT 43.7 % (39.6-50.0); HGB 14.6 d/dL (13.0-17.0); MCH 31.7 pg (27.0-32.0); MCHC 33.4 d/dL (32.0-37.0); Mean Platelet Volume 9.2 FL (9.5-12.2); NRBC Per 100 WBC 0 X 10*3/uL (0.00-0.01); Platelet Count 304 X 10*3/uL (140-440); RDW 13.2 % (11.5-14.5); WBC 6.93 X 10*3/uL (4.50-10.00)
[2023-08-02 06:26] LABS: Urine Creatinine 65.6 mg/dL (39.0-259.0)
[2023-08-02 09:44] LABS: Angiotensin-1 Converting Enz. 6 U/L (8-52)
[2023-08-02 14:16] LABS: Free Kappa Lt Chain Qnt, Serum 2.97 mg/dL (0.33-1.94); Free Lambda Lt Chain Qnt, Seru 1.33 mg/dL (0.57-2.63)
[2023-08-02 19:09] LABS: Vitamin D, 1, 25-Dihydroxy 32 pg/mL (20 - 79)
== END | disposition home or self-care (01) ==
LOC: LABWHC1 15:59
PROVIDERS: ATTEND Internal Medicine Nephrology
DX: E55.9 Vitamin D deficiency, unspecified (principal); N39.0 Urinary tract infection, site not specified; D63.1 Anemia in chronic kidney disease; M10.9 Gout, unspecified; N18.31 Chronic kidney disease, stage 3a; R80.9 Proteinuria, unspecified
CPT/HCPCS: 36415; 80053; 81003; 82043; 82164; 82306; 82570; 82652; 82728; 83540; 83550; 83735; 83883; 83970; 84100; 84550; 85027

== ENCOUNTER → 2023-08-22 | Outpatient (CLI) | payer MEDICARE ==
--- NOTE | 2023-08-23 10:23 | NM ---
EXAMINATION TYPE: NM parathyroid w/spect DATE OF EXAM: 08/22/2023 COMPARISON: NONE CLINICAL INDICATION: Male, 83 years old with history of E213 HYPERPARATHYROIDISM, UNSPECIFIED; TECHNIQUE: Following administration of 24.8 mCi Tc99m Sestamibi. Anterior projection images of the neck and ches t were obtained 10 minutes and 3 hours post injection. SPECT images of the neck and chest were obtai yecenia and reconstructed in three axes. FINDINGS: Thyroid tracer washout: Delayed images demonstrate reduced tracer washout from the thyroid which may be positional or related to underlying thyroid function. Parathyroid uptake: None. The two-hour delayed images do not demonstrate any focal abnormal persisten t uptake in the region of the parathyroid glands to suggest parathyroid adenoma. Normal uptake: There is physiological tracer uptake in the myocardium, liver, salivary glands, and th yroid gland. IMPRESSION: 1. Normal parathyroid imaging study. No evidence for mediastinal uptake to suggest mediastinal parath yroid adenoma
== END | disposition home or self-care (01) ==
LOC: RADNMMAIN 10:48
PROVIDERS: ATTEND Internal Medicine Nephrology
DX: E21.3 Hyperparathyroidism, unspecified (principal)
CPT/HCPCS: 78071; A9500

== ENCOUNTER → 2023-08-24 | Outpatient (CLI) | payer MEDICARE ==
[2023-08-24 21:17] LABS: BUN/Creat Ratio 16.12 Ratio (12.00-20.00); Blood Urea Nitrogen 27.4 mg/dL (9.0-27.0); Calcium 10.2 mg/dL (8.7-10.3); Carbon Dioxide 20.9 mmol/L (21.6-31.8); Chloride 108 mmol/L (96-109); Glucose 104 mg/dL (70-110); Sodium 139 mmol/L (135-145)
== END | disposition home or self-care (01) ==
LOC: LABWHC1 11:50
PROVIDERS: ATTEND Urology
DX: N20.0 Calculus of kidney (principal); N52.01 Erectile dysfunction due to arterial insufficiency
CPT/HCPCS: 36415; 80048; 84403

== ENCOUNTER → 2024-07-02 | Outpatient (CLI) | payer MEDICARE ==
--- NOTE | 2024-07-02 17:56 | US ---
EXAMINATION TYPE: US kidneys/renal and bladder DATE OF EXAM: 07/02/2024 COMPARISON: NONE CLINICAL INDICATION: Male, 84 years old with history of N20.0 CALCULUS OF KIDNEY; known stones and cy sts, no symptoms EXAM MEASUREMENTS: Right Kidney: 12.0 x 4.7 x 5.7cm Left Kidney: 12.5 x 5.8 x 6.8cm Right Kidney: No hydronephrosis or masses seen Left Kidney: multiple cyst seen, largest superior pole =3.8 x 3.8 x 3.1cm possible stone seen = 0.5 x 0.5cm Bladder: wnl There is no evidence for hydronephrosis at this point in time. No nephrolithiasis is seen. No solid masses are identified. The urinary bladder is anechoic. Bilateral ureteral jets are seen. IMPRESSION: Renal cystic changes noted. [facility] Iveth Sutton, , 07/02/2024 5:53 PM
== END | disposition home or self-care (01) ==
LOC: RADUSWWP 13:24
PROVIDERS: ATTEND Urology
DX: N20.0 Calculus of kidney
CPT/HCPCS: 76770